=== PATIENT | male | born 1985 | race Caucasian/White ===

== ENCOUNTER 2019-09-22 11:04 | Inpatient (IN) | payer OTHER ==
[2019-09-22] MEDS ORDERED: EPINEPHrine,Rac 2.25% NEB.SOL* 0.5 ML INH ONE (11:13)
[2019-09-22] MEDS ORDERED: EPINEPHRINE 1 MG/ML 1 ML VIAL IM ONE (11:13)
[2019-09-22] MEDS ORDERED: C1 Esterase Inhib (Human) 500 UNIT INJ IV ONE (11:15)
[2019-09-22] MEDS ORDERED: Famotidine IV* 10 MG/ML 2 ML (20 mg) IV SLOW PU ONE (11:17)
--- NOTE | 2019-09-22 11:18 | ED ---
Complex/Multi-Sys Presentation - HPI Summary HPI Summary: Patient is a 33 y/o M presenting to [facility] via EMS for swelling of mouth, nose and tongue, throat swelling and pain, stridor, SOB, shallow respirations. Patient claims Hx of hereditary angioedema. Patient states that he has been intubated multiple times for similar previous issues, with the most recent episode having occurred in December 2018. He states that he feels he is getting bad currently. Sx are estimated to have onset around 0930. EMS reports 0.5 mg epi x3 , first at 0935, second 0946, third and most recent at 1047. He received Benadryl 100 mg IM and 125 mg Solu-Medrol. Pt denies any fever, chills, erythema of eyes, CP, cough, abdominal pain, N/V, dysuria, hematuria, myalgia, rash, or dizziness. Home medications and allergies are reviewed. - History Of Current Complaint Chief Complaint: EDAllergicReaction Time Seen by Provider: 09/22/19 11:08 Hx Obtained From: Patient Onset/Duration: Lasting Hours, Still Present Timing: Constant, Hours Severity Currently: Severe Location: Pain At: - throat Associated Signs And Symptoms: Positive: SOB, Edema, Other - throat swelling and pain, stridor, shallow respirations are reported; patient denies any fever, chills, erythema of eyes, CP, cough, abdominal pain, N/V, dysuria, hematuria, myalgia, rash, or dizziness. Negative: Dizziness, Cough, Chest Pain, Nausea, Vomiting, Abdominal Pain, Dysuria, Fever - Allergies/Home Medications Allergies/Adverse Reactions: Allergies Allergy/AdvReac Type Severity Reaction Status Date / Time No Known Allergies Allergy Verified 12/28/15 05:03 Home Medications: Home Medications DOXYcycline CAP(*) [DOXYcycline 100MG CAP(*)] 100 mg PO BID 09/22/19 [History Confirmed 09/22/19] Metronidazole (TOPICAL)(NF) [Metrocream (NF)] 0.75 % TOPICAL DAILY 09/22/19 [ History Confirmed 09/22/19] Sofosbuvir/Velpatasvir 400(NF) [Epclusa Tab (NF)] 1 tab PO DAILY 09/22/19 [ History Confirmed 09/22/19] Tretinoin [Avita] 0.025 % TOPICAL BEDTIME 09/22/19 [History Confirmed 09/22/19] PMH/Surg Hx/FS Hx/Imm Hx Endocrine/Hematology History: Reports: Other Endocrine/Hematological Disorders - angioedema Cardiovascular History: Reports: Other Cardiovascular Problems/Disorders - HEREDITARY ANGIOEDEMA EENT History: Reports: Other - hereditary angioedema Psychiatric History: Reports: Hx Anxiety Infectious Disease History: No Infectious Disease History: Denies: Traveled Outside the [place] in Last 30 Days - Family History Known Family History: Positive: Other - hereditary angioedema - Social History Alcohol Use: None Hx Substance Use: No Substance Use Type: Reports: None Hx Tobacco Use: Yes Smoking Status (MU): Light Every Day Tobacco Smoker Review of Systems Negative: Fever, Chills Negative: Erythema ENT: Other - positive - throat swelling and pain Negative: Chest Pain Respiratory: Other - positive - shallow respirations, stridor Positive: Shortness Of Breath. Negative: Cough Negative: Vomiting, Nausea Negative: dysuria, incontinence Positive: Edema - angioedema . Negative: Myalgia Negative: Rash Neurological: Other - negative - dizziness All Other Systems Reviewed And Are Negative: Yes Physical Exam - Summary Physical Exam Summary: Constitutional: Well-developed, Well-nourished, Alert. (-) Distressed Skin: Warm, Dry HENT: Normocephalic; Atraumatic; Patient had secretions of the mouth and edematous tongue. Eyes: Conjunctiva normal Neck: Musculoskeletal ROM normal neck. (-) JVD, (+) Stridor, (-) Tracheal deviation Cardio: Rhythm regular, rate normal, Heart sounds normal; Intact distal pulses; The pedal pulses are 2+ and symmetric. Radial pulses are 2+ and symmetric. (-) Murmur Pulmonary/Chest wall: Increased effort, respiratory distress. Abd: Soft, (-) tenderness, (-) Distension, (-) Guarding, (-) Rebound Musculoskeletal: (-) Edema Lymph: (-) Cervical adenopathy Neuro: Alert, Oriented x3 Psych: Mood and affect Normal Triage Information Reviewed: Yes Vital Signs On Initial Exam: Initial Vitals Temp Pulse Resp BP Pulse Ox 98.7 F 120 26 145/84 96 09/22/19 11:08 09/22/19 11:08 09/22/19 11:08 09/22/19 11:08 09/22/19 11:08 Vital Signs Reviewed: Yes Procedures - Sedation Patient Received Moderate/Deep Sedation with Procedure: No - Intubation Intubation Method: orotracheal Tube Size (cm): 7.0 Breath Sounds after Intubation: equal Intubation Complications: no complications Post Intubation Xray: Yes Progress/Xray Impression: STATUS POST INTUBATION, CLEAR LUNGS. Diagnostics - Vital Signs Vital Signs Temp Pulse Resp BP Pulse Ox 09/22/19 11:08 98.7 F 120 26 145/84 96 - Laboratory Result Diagrams: 09/22/19 12:44 09/22/19 12:44 Lab Statement: Any lab studies that have been ordered have been reviewed, and results considered in the medical decision making process. - Radiology CXR Radiology Interpretation Completed By: Radiologist Summary of Radiographic Findings: IMPRESSION: STATUS POST INTUBATION, CLEAR LUNGS. THIS REPORT WAS REVIEWED BY ED PHYSICIAN. - Ultrasound US IV Ultrasound Interpretation Completed By: ED Physician Summary of Ultrasound Findings: Right antecubital US, compressible blood vessel with glood blood return obtained. However, it did eventually infiltrate, HIV NURSE Dodo placed IV in right foot. Re-Evaluation - Re-Evaluation First Eval Re-Evaluation Time: 12:00 Comment: Patient is bucking the tube. Another 100 mg propofol was administered. He is also receiving rocuronium. Will look for US guided IV. Complex Multi-Symp Course/Dx Course Of Treatment: Patient is a 33 y/o M presenting to [facility] via EMS for swelling of mouth, nose and tongue, throat swelling and pain, stridor, SOB, shallow respirations. Patient claims Hx of hereditary angioedema. Patient states that he has been intubated multiple times for similar previous issues, with the most recent episode having occurred in December 2018. He states that he feels he is getting bad currently. Sx are estimated to have onset around 0930. EMS reports 0.5 mg epi x3, first at 0935, second 0946, third and most recent at 1047. He received Benadryl 100 mg IM and 125 mg Solu-Medrol. Patient was noted to have secretions at the mouth. Tongue is edematous. Stridor noted. Starting dose for Propofol was 60 mg due to the patient appearing to have a significant tolerance to the medication. Anesthesiology was called emergency for airway back up. Dr. Gordon present as well. Patient was intubated. Video laryngoscope used, tube was visualized going past the vocal cords. However, video during the procedure. Mist was visualized in the tube and bilateral breath sounds heard. No epigastric sounds. CXR. IMPRESSION: STATUS POST INTUBATION, CLEAR LUNGS.After intubation around 1200, patient started bucking the tube. Another 100 mg propofol was administered. He is also receiving rocuronium. Dr. Gutierrez, Packing Machine Tender was called and agrees to admit. - Diagnoses Provider Diagnoses: Hereditary angioedema, Airway compromise - Critical Care Time Critical Care Time: 30-74 min - 60 minutes CCT Discharge ED - Sign-Out/Discharge Documenting (check all that apply): Patient Departure - admit - Discharge Plan Condition: Guarded Disposition: ADMITTED TO [facility] - Attestation Statements Document Initiated by Scribe: Yes Documenting Scribe: JADA SOLER Provider For Whom Scribe is Documenting (Include Credential): CANDELARIO TANNER MD Scribe Attestation: JADA Mohr, scribed for CANDELARIO TANNER MD on 09/22/19 at 2300. Status of Scribe Document: Ready
[2019-09-22] MEDS ORDERED: Propofol* 100 ML IV ONE ×2 (11:20→11:59)
[2019-09-22] MEDS ORDERED: Propofol* 10 MG/ML 20 ML BTL IV PUSH ONE ×4 (11:21→16:29)
[2019-09-22] MEDS ORDERED: Propofol* 100 ML ONE ×2 (11:30→11:44)
[2019-09-22] MEDS ORDERED: Rocuronium* 10 MG/ML VIAL ONE (11:36)
[2019-09-22] MEDS ORDERED: Etomidate* 2 MG/ML 20 ML VIAL (40 MG) ONE (11:46)
[2019-09-22] MEDS ORDERED: Succinylcholine* 20 MG/ML 10 ML VIAL ONE (11:46)
[2019-09-22] MEDS ORDERED: Rocuronium* 10 MG/ML VIAL IV ONE (12:30)
[2019-09-22 12:54] LABS: ABS Monocytes 0.2 10^3/ul (0-0.8); ABS Neutrophils 10.4 10^3/ul (1.5-7.7); Eosinophil % 0.2 %; Hematocrit 41 % (42-52); Hemoglobin 13.6 g/dL (14.0-18.0); Lymphocyte % 8.9 %; Mean Corpuscular HGB Conc 33 g/dL (31-36); Mean Corpuscular Hemoglobin 27 pg (27-31); Mean Corpuscular Volume 83 fL (80-94); Mean Platelet Volume 8.6 fL (7.4-10.4); Nucleated Red Blood Cells % 0.1; Platelet Count 225 10^3/uL (150-450); Red Blood Count 4.96 10^6 /uL (4.18-5.48); Red Cell Distribution Width 14 % (10-15); White Blood Count 11.6 10^3/uL (3.5-10.8)
[2019-09-22 13:15] LABS: Albumin 4.1 g/dL (3.2-5.2); Albumin/Globulin Ratio 1.3 (1-3); BUN/Creatinine Ratio 17.1 (8-20); Calcium 8.7 mg/dL (8.6-10.3); EGFR African American 142.9 (>60); EGFR Non-African American 118.1 (>60); Globulin 3.1 g/dL (2-4); Potassium 3.3 mmol/L (3.5-5.0); Total Bilirubin 0.7 mg/dL (0.2-1.0); Total Protein 7.2 g/dL (6.4-8.9)
[2019-09-22] MEDS ORDERED: Dextrose 50% Syringe 50 ML* 25 GM/50 ML SYRINGE IV PUSH PRN (14:57)
--- NOTE | 2019-09-22 16:14 | HP ---
CRITICAL CARE ADMISSION NOTE: DATE OF ADMISSION: 09/22/19 HISTORY OF PRESENT ILLNESS: The patient is a 33-year-old male, currently incarcerated, past medical history reportedly of hereditary angioedema, he has had prior presentations here at [facility] for the same. On this occasion, he reports no particular allergen exposure, but noticed that he was having some swelling of his tongue and cheeks. [facility] was given intramuscular epinephrine. He felt he was continuing to progress and he was brought to the emergency department here at [place]. In the ED, he was given steroids as well as more epinephrine. The patient reported that he was having increased dyspnea as well as a tingling of his face and tongue. Providers noted auscultatable stridor and the patient was intubated with a 7.0 tube. PAST MEDICAL HISTORY: Significant for reported hereditary angioedema. I do not see that that has ever been worked up here, so I will be sending C1 esterase inhibitor, both function and antigen. Additionally, he has a reported history of anxiety as well as hepatitis C from IV drug abuse. CURRENT MEDICATIONS: Include: 1. Epclusa 1 tab p.o. daily. 2. Doxycycline 100 mg p.o. b.i.d., apparently for some URI complaints. 3. Avita cream 0.025% topical. 4. Flagyl topical cream for urethral eruption at 0.75%. ALLERGIES: He has no known drug allergies. FAMILY HISTORY: Similarly, I am unable to question him. SOCIAL HISTORY: He is an active IV drug abuser until incarceration. I am unable to question him about smoking or alcohol history as he is currently intubated. He is currently incarcerated. He is heavily tattooed. REVIEW OF SYSTEMS: Also unable to question. PHYSICAL EXAMINATION GENERAL: He is a very slight of build white male, now intubated on very high dose Diprivan, but still responsive through that. VITAL SIGNS: He has a temperature of 37.4 degrees, heart rate in the 90s, respiratory rate in the teens, saturating 97% on 40% on assist control on the ventilator, blood pressure currently at 130/80. HEENT: He is normocephalic, atraumatic. Pupils equal, somewhat constricted, but reactive. NECK: Supple, nontender, without JVD. LUNGS: Stridor of course is un-assessable due to the fact that he is now intubated. He has clear lung sounds. HEART: S1, S2. Regular. ABDOMEN: Soft, nontender, nondistended. Positive bowel sounds. EXTREMITIES: Lower extremities without edema. He is arousable and moving all 4 extremities. DIAGNOSTIC STUDIES/LAB DATA: Laboratory evaluations revealing white blood cell count of 11.6 with a normal differential, hemoglobin 13.6, platelet count 225. Serum sodium 141, potassium 3.3, chloride 106, bicarb 28, BUN and creatinine is 13/0.7 with a glucose of 239 and a lactate of 3.3. LFTs are grossly normal apart from a marginal elevation of ALT at 65, upper limit of normal being 52 on our assay. Chest x-ray without effusion or infiltrate. ET tube in good position. ASSESSMENT AND PLAN: This is a 33-year-old male with reported history of hereditary angioedema, by his report 13 intubations in the past, now 14 after being intubated in the emergency department here today. I have spoken to the corrections officers who felt that he did look a little bit swollen today compared to his usual appearance. I have ordered for the C1 esterase workup to see if he truly does have hereditary angioedema. He is not terribly swollen to my exam at this time, even with the intubation. His tongue is clearly in his mouth, not violating his lips. He does not seem to have any significant buccal swelling at this time nor labial swelling. We will keep him intubated on steroids overnight. We will see how he looks in the morning, evaluate him for a tube leak and if all looks good, I am hoping to be able to extubate him as soon as tomorrow morning. We are also giving him antihistamines and providing GI and DVT prophylaxis. TIME SPENT: The aggregate time providing critical care as well as personally interpreting multiple laboratory evaluations, imaging studies, reviewing the medical records, discussing the case with other physicians has thus far exceeded 35 minutes. [id number]/CPS #: [id number] ANTONIA
[2019-09-22] MEDS: methylPREDNISolone 125 MG* 2 ML VIAL IV SCH (16:21)
[2019-09-22] MEDS: D5W 1/2 NS KCl 20 Meq 1000 ML* 1,000 ML IV SCH (16:23)
[2019-09-22] MEDS: diPHENhydraMINE IV* 50 MG/ML 1 ml VIAL (BENADRYL) IV SCH (16:33)
[2019-09-22 17:05] LABS: Urine Appearance Cloudy; Urine Bilirubin Negative (Negative); Urine Blood Negative (Negative); Urine Color Yellow; Urine Glucose 1+(50 mg/dL) (Negative); Urine Ketones Negative (Negative); Urine Nitrite Negative (Negative); Urine Protein Negative (Negative); Urine Specific Gravity 1.008 (1.010-1.030); Urine Urobilinogen Negative (Negative)
[2019-09-22] MEDS: SOFOSBUVIR PO SCH (17:50)
[2019-09-22] MEDS: VELPATASVIR PO SCH (17:50)
[2019-09-22] MEDS: Chlorhexidine MOUTHWASH 0.12%* 15 ML UDC SWISH SPIT SCH ×3 (18:08→22:05)
[2019-09-22] MEDS: Insulin LISPRO* 1 UNITS UNIT SUBCUT SCH (18:19)
[2019-09-22] MEDS: Propofol* 100 ML IV SCH ×2 (18:35→22:31)
[2019-09-22] MEDS: TRETINOIN 0.025% TOPICAL SCH (20:34)
[2019-09-22] MEDS ORDERED: Ranitidine INJ(*) 25 MG/ML 2 ML VIAL IVPB SCH (21:00)
[2019-09-22] MEDS: DOXYcycline CAP(*) 100 MG PO SCH (21:08)
[2019-09-23] MEDS: methylPREDNISolone 125 MG* 2 ML VIAL IV SCH ×4 (00:11→22:26)
[2019-09-23] MEDS: Insulin LISPRO* 1 UNITS UNIT SUBCUT SCH ×4 (00:30→18:21)
[2019-09-23] MEDS: Propofol* 100 ML IV SCH ×2 (01:27→05:10)
[2019-09-23] MEDS: D5W 1/2 NS KCl 20 Meq 1000 ML* 1,000 ML IV SCH (02:00)
[2019-09-23] MEDS: diPHENhydraMINE IV* 50 MG/ML 1 ml VIAL (BENADRYL) IV SCH ×2 (02:49→16:40)
[2019-09-23] MEDS: Chlorhexidine MOUTHWASH 0.12%* 15 ML UDC SWISH SPIT SCH ×3 (02:49→11:04)
[2019-09-23] MEDS: Famotidine IV* 10 MG/ML 2 ML (20 mg) IV SLOW PU SCH ×2 (08:35→20:03)
[2019-09-23] MEDS ORDERED: C1 Esterase Inhib (Human) 500 UNIT INJ IV ONE (10:00)
[2019-09-23] MEDS: Morphine INJ* 4 MG/ML 1 ML SYRINGE (NEW SYRINGE VERSION) IV PRN ×3 (10:14→20:10)
[2019-09-23] MEDS: METRONIDAZOLE TOPICAL SCH (11:03)
[2019-09-23] MEDS: VELPATASVIR PO SCH (11:04)
[2019-09-23] MEDS: SOFOSBUVIR PO SCH (11:04)
[2019-09-23] MEDS: DOXYcycline CAP(*) 100 MG PO SCH ×2 (12:03→20:02)
--- NOTE | 2019-09-23 13:18 | PN ---
Date of Service: 09/23/19 Critical Care Services: No events overnight Vital Signs: Temp Pulse Resp BP SpO2 FiO2 37.3 C 63 18 106/61 95 30 09/23/19 12:00 09/23/19 11:00 09/23/19 11:00 09/23/19 11:00 09/23/19 11:00 09/23 08:00 Physical Exam: Gen: awake and alert s/p extubation earlier this AM HEENT: NCAT, PERRL, no stridor Lungs: no wheeze Cardiac: S1S2 regular Abdomen: soft, NT, ND, BS Extremities: no edema Neuro: grossly non-focal Fluid Balance (Past 24 Hours): I= O= Net Intake & Output 09/21/19 09/22/19 09/23/19 09/24/19 06:59 06:59 06:59 06:59 Intake Total 1907 65 Output Total 2425 505 Balance -518 -440 Weight 83.6 kg Intake: IV Fluids 1357 D5W 1/2 NS 20 meq KCL 1357 Medicated IV 480 65 CC - Propofol/Diprivan 480 65 Tube Feeding 0 Tube Feeding Flush Amount 70 Output: NG Tube Drainage Amount 200 Jaeger 2227 505 Labs: Laboratory Results - last 24 hr 09/22/19 09/22/19 09/22/19 12:44 12:44 16:00 Sodium 141 Potassium 3.3 L Chloride 106 Carbon Dioxide 28 Anion Gap 7 BUN 13 Creatinine 0.76 Est GFR ( Amer) 142.9 Est GFR (Non-Af Amer) 118.1 BUN/Creatinine Ratio 17.1 Glucose 239 H POC Glucose (mg/dL) Hemoglobin A1c 5.4 Lactic Acid 3.3 H* Calcium 8.7 Total Bilirubin 0.70 AST 31 ALT 65 H Alkaline Phosphatase 82 Troponin I 0.00 Total Protein 7.2 Albumin 4.1 Globulin 3.1 Albumin/Globulin Ratio 1.3 Urine Color Urine Appearance Urine pH Ur Specific [place] Urine Protein Urine Ketones Urine Blood Urine Nitrate Urine Bilirubin Urine Urobilinogen Ur Leukocyte Esterase Urine Glucose 09/22/19 09/22/19 09/23/19 16:01 18:07 00:15 Sodium Potassium Chloride Carbon Dioxide Anion Gap BUN Creatinine Est GFR ( Amer) Est GFR (Non-Af Amer) BUN/Creatinine Ratio Glucose POC Glucose (mg/dL) 171 H 170 H Hemoglobin A1c Lactic Acid Calcium Total Bilirubin AST ALT Alkaline Phosphatase Troponin I Total Protein Albumin Globulin Albumin/Globulin Ratio Urine Color Yellow Urine Appearance Cloudy Urine pH 5.0 Ur Specific [place] 1.008 L Urine Protein Negative Urine Ketones Negative Urine Blood Negative Urine Nitrate Negative Urine Bilirubin Negative Urine Urobilinogen Negative Ur Leukocyte Esterase Negative Urine Glucose 1+(50 mg/dl) A 09/23/19 06:05 Sodium Potassium Chloride Carbon Dioxide Anion Gap BUN Creatinine Est GFR ( Amer) Est GFR (Non-Af Amer) BUN/Creatinine Ratio Glucose POC Glucose (mg/dL) 143 H Hemoglobin A1c Lactic Acid Calcium Total Bilirubin AST ALT Alkaline Phosphatase Troponin I Total Protein Albumin Globulin Albumin/Globulin Ratio Urine Color Urine Appearance Urine pH Ur Specific [place] Urine Protein Urine Ketones Urine Blood Urine Nitrate Urine Bilirubin Urine Urobilinogen Ur Leukocyte Esterase Urine Glucose Nutrition: Full liquids Impression: Reported hereditary angioedema with good leak tets on ETT this AM and extubated uneventfully. Plan: Hereditary Angioedema - I was skeptical of this diagnosis as his his clinical edema at the time I saw him was not particularly impressive for the diagnosis. That said, he was treated with high dose steroids and antihistamines for 24H and on extubation this AM he relates very specific information about his diagnosis, that it is hereditary angioedema type III, that he does not improve with 'corticosteroids' or 'antihistamines' and "I need C-1 esterase inhibitor or I will go through this again" all in writing as he relates that it is difficult to phonate and he feels it getting worse since removal of the tube. I continue to be skeptical that he requires the drug but the diagnosis of this disease is complex, even ethereal at times and the consequences of me not treating him could be fatal. In that light we have ordered c-1 inhibitor and will continue to observe him for progress. Critical Care Time: 35 minutes
[2019-09-23] MEDS: TRETINOIN 0.025% TOPICAL SCH (20:03)
[2019-09-24] MEDS: Morphine INJ* 4 MG/ML 1 ML SYRINGE (NEW SYRINGE VERSION) IV PRN ×3 (00:45→09:18)
[2019-09-24] MEDS: Insulin LISPRO* 1 UNITS UNIT SUBCUT SCH ×3 (00:45→12:57)
[2019-09-24] MEDS: diPHENhydraMINE IV* 50 MG/ML 1 ml VIAL (BENADRYL) IV SCH (03:27)
[2019-09-24] MEDS: VELPATASVIR PO SCH (08:43)
[2019-09-24] MEDS: SOFOSBUVIR PO SCH (08:43)
[2019-09-24] MEDS: DOXYcycline CAP(*) 100 MG PO SCH (08:43)
[2019-09-24] MEDS: Famotidine IV* 10 MG/ML 2 ML (20 mg) IV SLOW PU SCH (08:44)
[2019-09-24] MEDS: methylPREDNISolone 125 MG* 2 ML VIAL IV SCH (08:44)
[2019-09-24] MEDS: METRONIDAZOLE TOPICAL SCH (08:45)
--- NOTE | 2019-09-24 11:07 | DS ---
33 y/o male with reported history hereditary angioedema III. Intubated in ED for mild angioedema to exam, glossitis and subjective complaints from patient. Treated with steroids and antihistamines and edema improved. Leak test prior to extubation around a 7.0 ETT and a strong leak detected. Pt extubated and objective parameters remained good with respect to exam and respiratory status. That said, patient again complaining of subjective worsening in symptoms and feeling of impending intubation. He did then receive C-1 esterase inhibitor. He reported subjective improvement. He looks about the same to me with very mild facial edema. No buccal edema, no stridor, no dyspnea, no vocal change, no glossal edema. Ambulate in ICU and DC back to intermediate. I do not believe this patient has hereditary angioedema III. The diagnosis is entirely clinical by definition. Statistically he is an aberration if this is correct. He is supposed to be female and he is supposed to have first degree relatives with the disease which he tells me he does not. I have discussed this with the patient who is open to the idea that he is allergic to something rather than he has HAE. He volunteered that Raamen soup seems to tip him over so I wondered about MSG and asked him about Doritos and [place]an food which are both recognized triggers for him. I think the allergen here may be MSG and we have changed his allergy profile at [facility] to reflect that and the patient has been asked to avoid MSG. He voiced understanding and appreciation and was very open to the conversation. He will be discharged on a prednisone taper beginning with 40mg tomorrow and decrease by 10mg daily over four days. Discharge condition is stable Discharge disposition is to his domicile which is halfway. Discharge Diagnosis is Angioedema likely secondary to food allergen possibly monosodium glutamate. Doubt Hereditary Angioedema III. Recommend f/u allergy testing attention MSG. Recommend record ALLERGIC to MSG until this can be disproven. Continue his other medications as they were prior to admission.
[2019-09-24 12:19] VITALS: BP 118/69
== END 2019-09-24 14:00 | DRG 811 ==
LOC: ED 11:04 → EEVIPCON 12:48 → ICU 12:48
PROVIDERS: ADMIT Internal Medicine Critical Care Medicine; ATTEND Internal Medicine Critical Care Medicine
PROC: 5A1935Z Respiratory Ventilation, Less than 24 Consecutive Hours (ICD-10-PCS; principal; 2019-09-22)
PROC: 0BH17EZ Insertion of Endotracheal Airway into Trachea, Via Natural or Artificial Opening (ICD-10-PCS; 2019-09-22)
DX: T78.3XXA Angioneurotic edema, initial encounter (principal); D84.1 Defects in the complement system; F41.9 Anxiety disorder, unspecified; F17.210 Nicotine dependence, cigarettes, uncomplicated; Z91.018 Allergy to other foods; Z28.21 Immunization not carried out because of patient refusal; Z79.899 Other long term (current) drug therapy
CPT/HCPCS: 36415; 71045; 80053; 81003; 82947; 83036; 83520; 83605; 83883; 84484; 85025; 87040; 87641; 94003; 96374; 96375; 99285; A9270-GY; J0330; J1200; J2270; J2704; J2930

== ENCOUNTER 2019-09-27 01:02 | Inpatient (IN) | payer OTHER ==
[2019-09-27] MEDS ORDERED: EPINEPHRINE 1 MG/ML 1 ML VIAL IM ONE (01:06)
[2019-09-27] MEDS ORDERED: NS 0.9% 1000 ML** 1,000 ML IV ONE (01:06)
[2019-09-27] MEDS ORDERED: Lorazepam PYXIS KEY ONE (01:09)
[2019-09-27] MEDS ORDERED: LORazepam INJ* 2 MG/ML 1 ML VIAL ONE (01:10)
[2019-09-27] MEDS ORDERED: EPINEPHRINE 1 MG/ML 1 ML VIAL ONE (01:16)
[2019-09-27] MEDS ORDERED: Etomidate* 2 MG/ML 10 ML VIAL IV ONE (01:16)
[2019-09-27] MEDS ORDERED: EPINEPHrine SYR 0.1MG/ML* SYRINGE ONE (01:16)
[2019-09-27] MEDS ORDERED: LORazepam INJ* 2 MG/ML 1 ML VIAL IM ONE (01:16)
[2019-09-27] MEDS ORDERED: Succinylcholine* 20 MG/ML 10 ML VIAL IV ONE (01:17)
--- NOTE | 2019-09-27 01:24 | ED ---
Respiratory - HPI Summary HPI Summary: Patient is a 33 y/o M presenting to [facility] via EMS for SOB and angioedema. It is reported that the patient has Hx of hereditary angioedema and has had 15-16 previous intubations as a result of this. He was recently evaluated at [facility] for similar presentation, patient was immediately intubated upon his arrival to ED and admitted to ICU. He was discharged from ICU a few days ago. Longterm facility where patient resides had administered epi 0.5 mg x2 and benadryl 25 mg. EMS administered 0.5 mg epi, benadryl 25 mg, 10 mg decadron, and a duoneb. Patient arrived at 0101, provider at bedside immediately to evaluate. Home medications and allergies are reviewed. - History of Current Complaint Chief Complaint: EDAllergicReaction Stated Complaint: SHORT OF BREATH Time Seen by Provider: 09/27/19 01:06 Hx Obtained From: Patient Onset/Duration: Still Present Initial Severity: Severe Current Severity: Severe Pain Intensity: 0 Character: Dyspnea at Rest Associated Signs and Symptoms: Edema - angioedema - Allergy/Home Medications Allergies/Adverse Reactions: Allergies Allergy/AdvReac Type Severity Reaction Status Date / Time monosodium glutamate Allergy Difficulty Verified 09/24/19 10:33 Breathing/Wheezing PMH/Surg Hx/FS Hx/Imm Hx Endocrine/Hematology History: Reports: Other Endocrine/Hematological Disorders - angioedema Cardiovascular History: Reports: Other Cardiovascular Problems/Disorders - HEREDITARY ANGIOEDEMA Sensory History: Reports: Hx Contacts or Glasses Denies: Hx Hearing Aid Opthamlomology History: Reports: Hx Contacts or Glasses Psychiatric History: Reports: Hx Anxiety Infectious Disease History: No Infectious Disease History: Reports: Hx Hepatitis Denies: Traveled Outside the [place] in Last 30 Days - Family History Known Family History: Positive: Other - hereditary angioedema - Social History Alcohol Use: None Hx Substance Use: No Substance Use Type: Reports: None Hx Tobacco Use: Yes Smoking Status (MU): Light Every Day Tobacco Smoker Review of Systems ENT: Other - positive - angioedema Positive: Shortness Of Breath All Other Systems Reviewed And Are Negative: Yes Physical Exam - Summary Physical Exam Summary: General: Well-developed, Well-nourished male. Respiratory distress noted. HEENT: Normocephalic, Atraumatic. Eyes: Conjuctiva normal, PERRL. Oropharynx: Patient has a severely enlarged tongue and oropharynx. Mucous membranes moist, (-) exudates. Neck: Soft, FROM, (-) lymphadenopathy, (-) thyromegaly, (-) JVD. Cardiovascular: Normal sinus rhythm, (-) murmur. Lungs: Respiratory distress, bilateral rhonchus breath sounds. Good air exchange. Abdomen: Soft, non-tender, non-distended, (-) organomegaly, normal bowel sounds. Back: (-) CVA tenderness Extremities: No edema. Skin: Warm, dry, (-) rash. Neuro: Alert and oriented x3, moves all extremities equally. No ataxia. No gait disturbance. No sensory deficit. Normal strength, normal sensation. Psychiatric: Moderately Anxious-Appearing Triage Information Reviewed: Yes Vital Signs On Initial Exam: Initial Vitals Temp Pulse Resp BP Pulse Ox 97.9 F 83 24 142/96 100 09/27/19 01:04 09/27/19 01:04 09/27/19 01:04 09/27/19 01:04 09/27/19 01:04 Vital Signs Reviewed: Yes Procedures - Procedure Summary Procedure Summary: Patient received orotracheal intubation. 0121 - 30 mg etomidate administered. 0122 - 100 mg succinylcholine administered. 0124 - 8.0 tube was used, patient was 21 at the lips. Patient was successfully intubated with one attempt, no complications during the procedure noted. - Sedation Patient Received Moderate/Deep Sedation with Procedure: No - Intubation Time of Intubation: :24 Intubation Method: orotracheal Tube Size (cm): 8.0 Medications: Succinylcholine - and etomidate Breath Sounds after Intubation: equal Intubation Complications: no complications Post Intubation Xray: Yes Progress/Xray Impression: Tube in good position, pending official report. Diagnostics - Vital Signs Vital Signs Temp Pulse Resp BP Pulse Ox 09/27/19 01:04 97.9 F 83 24 142/96 100 - Laboratory Result Diagrams: 09/27/19 05:33 09/27/19 05:33 Lab Statement: Any lab studies that have been ordered have been reviewed, and results considered in the medical decision making process. - Radiology CXR Radiology Interpretation Completed By: ED Physician Summary of Radiographic Findings: Tube in good position, no obvious infiltrate and no pleural effusion, pending official report. Disposition - Course Course Of Treatment: 33-year-old male presents from [facility] with angioedema. Patient has significant tongue swelling upon arrival. Difficulty talking. Difficulty swallowing. Very short of breath. Wheezing. At his facility he was given 25 mg of Benadryl and .3 epinephrine IM. En route he was given 25 mg of Benadryl, repeat epinephrine, Decadron. Upon arrival patient was given 0.5 mg epinephrine. He continued to have significant shortness of breath and difficulty swallowing. Severe tongue swelling. Patient was given Ativan. Patient was given RSI with etomidate, succinylcholine. Intubated with 8.0 ETtube. Patient was given propofol for sedation without relief. Was given 2 doses of Versed. Then an Ativan drip was ordered. Patient referred to hospitalist for admission. During ED course, patient received epinephrine 0.3 mg IM, Ativan 2 mg IM, Zofran 4 mg IV, fluids. For intubation, patient was given 30 mg etomidate and 100 mg succinylcholine. However, patient had continued agitation and was given Propofol and Versed as well. - Diagnoses Provider Diagnoses: Angioedema - Physician Notifications Discussed Care Of Patient With: John Ghotra Time Discussed With Above Provider: 02:30 Instructed by Provider To: Other - Patient's case was discussed with Dr. Ghotra, Dr. Ghotra accepts for admission. - Critical Care Time Critical Care Time: 30-74 min - 56 minutes Discharge ED - Sign-Out/Discharge Documenting (check all that apply): Patient Departure - admit - Discharge Plan Condition: Fair Disposition: ADMITTED TO [facility] - Billing Disposition and Condition Condition: FAIR Disposition: Admitted to [facility] - Attestation Statements Document Initiated by Julia: Yes Documenting Scribe: JADA SOLER Provider For Whom Julia is Documenting (Include Credential): MARIA M RUTH MD Scribe Attestation: JADA Mohr, scribed for MARIA M RUTH MD on 09/27/19 at 0631. Scribe Documentation Reviewed: Yes Provider Attestation: The documentation as recorded by the JADA veloz accurately reflects the service I personally performed and the decisions made by me, MARIA M RUTH MD Status of Scribe Document: Viewed
[2019-09-27] MEDS ORDERED: Midazolam* 1 MG/ML 5 ML VIAL (5 MG) ONE (01:33)
[2019-09-27] MEDS ORDERED: Ondansetron INJ* 2 MG/ML VIAL ONE (01:34)
[2019-09-27] MEDS ORDERED: Propofol* 10 MG/ML 20 ML BTL IV PUSH ONE (01:36)
[2019-09-27] MEDS ORDERED: Ondansetron INJ* 2 MG/ML VIAL IV ONE (01:37)
[2019-09-27] MEDS ORDERED: Midazolam* 1 MG/ML 5 ML VIAL (5 MG) IV SLOW PU ONE (01:37)
[2019-09-27] MEDS ORDERED: Propofol* 100 ML ONE ×3 (01:41→08:36)
[2019-09-27] MEDS: Propofol* 100 ML IV ONE ×3 (01:44→08:38)
[2019-09-27] MEDS ORDERED: Midazolam* 1 MG/ML 10 ML VIAL (10 MG) IV SLOW PU ONE (01:48)
[2019-09-27] MEDS ORDERED: LORazepam PREMIX BAG 1MG/ML* 100 MG/100 ML BAG IVPB SCH (02:00)
[2019-09-27 03:00] LABS: ABS Eosinophils 0.1 10^3/ul (0-0.6); ABS Lymphocytes 2.3 10^3/ul (1.0-4.8); ABS Monocytes 1.2 10^3/ul (0-0.8); ABS Neutrophils 15.7 10^3/ul (1.5-7.7); Eosinophil % 0.3 %; Hematocrit 41 % (42-52); Hemoglobin 13.6 g/dL (14.0-18.0); Lymphocyte % 11.8 %; Mean Corpuscular HGB Conc 33 g/dL (31-36); Mean Corpuscular Hemoglobin 27 pg (27-31); Mean Corpuscular Volume 82 fL (80-94); Mean Platelet Volume 8.4 fL (7.4-10.4); Nucleated Red Blood Cells % 0.1; Platelet Count 259 10^3/uL (150-450); Red Blood Count 5.01 10^6 /uL (4.18-5.48); Red Cell Distribution Width 14 % (10-15); White Blood Count 19.2 10^3/uL (3.5-10.8)
[2019-09-27 03:04] LABS: Urine Appearance Clear; Urine Bilirubin Negative (Negative); Urine Blood 3+ (Negative); Urine Color Straw; Urine Glucose Negative (Negative); Urine Ketones Negative (Negative); Urine Nitrite Negative (Negative); Urine Protein Negative (Negative); Urine Specific Gravity 1.009 (1.010-1.030); Urine Urobilinogen Negative (Negative)
[2019-09-27 03:15] LABS: INR 1.08 (0.82-1.09)
[2019-09-27 03:20] LABS: Albumin 3.9 g/dL (3.2-5.2); Albumin/Globulin Ratio 1.4 (1-3); BUN/Creatinine Ratio 26.3 (8-20); Calcium 8.7 mg/dL (8.6-10.3); EGFR African American 142.9 (>60); EGFR Non-African American 118.1 (>60); Globulin 2.8 g/dL (2-4); Potassium 3.4 mmol/L (3.5-5.0); Total Bilirubin 0.9 mg/dL (0.2-1.0); Total Protein 6.7 g/dL (6.4-8.9)
[2019-09-27 03:22] LABS: Troponin I 0.01 ng/mL (<0.03)
[2019-09-27 03:30] LABS: Urine Bacteria Absent (Absent); Urine Red Blood Cell 3+(>10/hpf) (Absent); Urine White Blood Cell Trace(0-5/hpf) (Absent)
[2019-09-27] MEDS ORDERED: NS 0.9% 1000 ML** 1,000 ML IV SCH (03:45)
[2019-09-27] MEDS ORDERED: KCL 10 MEQ/50 ML IVPREMIX* 10 MEQ/50 ML BAG IV ONE (05:32)
[2019-09-27 05:44] LABS: ABS Lymphocytes 1.1 10^3/ul (1.0-4.8); ABS Monocytes 0.4 10^3/ul (0-0.8); ABS Neutrophils 13.3 10^3/ul (1.5-7.7); Eosinophil % 0.1 %; Hematocrit 41 % (42-52); Hemoglobin 13.5 g/dL (14.0-18.0); Lymphocyte % 7.2 %; Mean Corpuscular HGB Conc 33 g/dL (31-36); Mean Corpuscular Hemoglobin 27 pg (27-31); Mean Corpuscular Volume 83 fL (80-94); Mean Platelet Volume 8.2 fL (7.4-10.4); Nucleated Red Blood Cells % 0.1; Platelet Count 211 10^3/uL (150-450); Red Blood Count 4.95 10^6 /uL (4.18-5.48); Red Cell Distribution Width 14 % (10-15); White Blood Count 14.8 10^3/uL (3.5-10.8)
[2019-09-27 05:57] LABS: BUN/Creatinine Ratio 26.1 (8-20); Calcium 8.3 mg/dL (8.6-10.3); EGFR African American 159.8 (>60); EGFR Non-African American 132.1 (>60); Potassium 4.4 mmol/L (3.5-5.0)
[2019-09-27] MEDS ORDERED: methylPREDNISolone SOD 40 MG* 1 ML VIAL IV SCH (06:00)
--- NOTE | 2019-09-27 07:19 | HP ---
CC: LEYLA Stone * ADMISSION HISTORY AND PHYSICAL: DATE OF ADMISSION: 09/27/19 CHIEF COMPLAINT: Allergic reaction and shortness of breath. HISTORY OF PRESENT ILLNESS: This is a 33-year-old male with past medical history of angioedema, which was questioned on the last admission by copy chaser with recurrent admissions for hereditary angioedema and requiring intubations in the past. Last admission was on 09/22/19. During this admission , the patient did receive C1 esterase inhibitor along with steroids, but the copy chaser did not agree with the diagnosis of hereditary angioedema and sent out labs including the C1 esterase inhibitor level and function. These levels are still pending as they were sent to [place] to [facility] to get tested. The patient again came back today with complaint of increasing shortness of breath. The ER physician thought the patient was in impending respiratory failure and subsequently intubated the patient. After a trial of epi and steroids, they did not seem to help the patient's angioedema. PAST MEDICAL HISTORY: As mentioned, reported history of angioedema, but both the function and antigen levels of C1 esterase are still pending from [facility], history of anxiety as well as hep C from IV drug abuse, and with multiple previous intubations for angioedema. MEDICATIONS: Include: 1. Avita. 2. Prednisone dose pack. 3. Epclusa. 4. Metronidazole. 5. Doxycycline. ALLERGIES: Has documented allergy to MONOSODIUM GLUTAMATE, which was assumed to cause the patient's allergic reaction on the last admission. FAMILY HISTORY: Unable to question him as he is intubated. SOCIAL HISTORY: He has a history of IV drug abuse until incarceration. The patient is otherwise heavily tattooed and is currently incarcerated, but otherwise no further social history could be obtained at this point. REVIEW OF SYSTEMS: Again, unable to obtain due to the patient's intubation status. PHYSICAL EXAMINATION GENERAL: The patient is sedated on the vent. VITAL SIGNS: In the ER, BP was noted to be 106/63, heart rate 69, respiration rate 17, saturating 100% on vent, temperature 97.9. HEAD AND NECK: Atraumatic, normocephalic. Bilateral pupils reactive. Oral mucosa was moist. I could not appreciate much edema of his tongue, but most of my oral examination was obscured due to ET tube placement. Neck is supple. No jugular venous distention. LUNGS: Clear to auscultation bilaterally. No wheezing, rhonchi or rales. HEART: S1, S2. Regular rate and rhythm. ABDOMEN: Soft, nontender, nondistended. EXTREMITIES: No cyanosis, clubbing or edema. DIAGNOSTIC STUDIES/LABORATORY DATA: Labs: CBC shows elevated white count of 19.2, hemoglobin 13.6, hematocrit 41, platelet count was 241. Coagulation profile, INR of 1.08. Comprehensive metabolic panel was unremarkable except for a mild hypokalemia with potassium of 3.4. Random glucose minimally elevated at 165. Lactic acid is 1.6. Troponin is 0.1. LFTs within normal limits. Urinalysis was positive for 3+ blood, negative for any leukocyte esterase or nitrites. Portable chest x-ray showed ET tube at 5 cm above the tom, but otherwise good air exchange. Overall, both lung thomas were inflated. Normal cardiac silhouette. IMPRESSION: This is a 33-year-old male with questionable history of hereditary angioedema versus allergic reaction. Previous C1 esterase inhibitor level is still pending. ASSESSMENT AND PLAN: 1. Angioedema, unclear if it is hereditary angioedema versus allergic reaction. For now, we will continue with the steroids, vent management according to copy chaser in the morning and we will get an ABG to follow up his overall saturation and titrate ventilation setting. 2. Leukocytosis is likely due to the steroid that was administered from the ER as the patient's lab were drawn until much later due to difficult IV access and due to difficult lab draw. 3. Hypokalemia. We will replace potassium. 4. DVT prophylaxis with sequential compression device. [id number]/[facility] #: [id number] ANTONIA
[2019-09-27] MEDS ORDERED: Pantoprazole IV* 40 MG IV SCH (08:00)
[2019-09-27] MEDS ORDERED: Chlorhexidine MOUTHWASH 0.12%* 15 ML UDC TOPICAL SCH (10:00)
--- NOTE | 2019-09-27 10:04 | PN ---
Progress Note - Progress Note Date of Service: 09/27/19 Note: Progress Note -- Critical Care 24 hour events/significant events: Comfortable on vent overnight. Tolerating SBT. +Cuff leak. ROS: negative except for pertinent positives mentioned above; ROS unable to be obtained secondary to intubated/sedated Tele: NSR Vitals: Initial Vitals Temp Pulse Resp BP Pulse Ox 97.9 F 83 24 142/96 100 09/27/19 01:04 09/27/19 01:04 09/27/19 01:04 09/27/19 01:04 09/27/19 01:04 O2/Vent: Spontaneous Infusions: Propofol Medications: Chlorhexidine Gluconate (Peridex Mouth Wash 0.12%*) 15 ml TOPICAL Q4HR FAVIOLA Propofol (Diprivan*) 100 mls @ 2.722 mls/hr IV .PER PROTOCOL ONE; Protocol Stop: 09/28/19 14:01 Last Admin: 09/27/19 08:38 Dose: 27.8 mls/hr Lorazepam (Ativan Premix Bag 1mg/Ml*) 100 mg in 100 mls @ 2 mls/hr IVPB .( Initial Rate) FAVIOLA; Protocol Sodium Chloride (Ns 0.9% 1000 Ml) 1,000 mls @ 100 mls/hr IV PER RATE [facility] Last Admin: 09/27/19 05:42 Dose: 100 mls/hr Methylprednisolone Sodium Succinate (Solu-Medrol 40 Mg) 40 mg IV Q8H FAVIOLA Last Admin: 09/27/19 05:46 Dose: 40 mg Pantoprazole Sodium (Protonix Iv*) 40 mg IV Q24H [facility] Last Admin: 09/27/19 08:39 Dose: 40 mg Physical Exam: Constitutional: Intubated and sedated Head: normocephalic, atraumatic Eyes: no pallor, no icterus ENT: moist mucous membranes Neck: soft, supple, no jvd, no stridor CVS: normal rate, regular, no murmur Chest/Resp: bilateral air entry, no rhales, no wheeze, no rhonchi, no acc muscle use Abdomen/GI: soft, nontender, nondistended, BS+ Ext/Msk: warm, pulses+, no edema Skin: intact, warm Neuro: awake, alert, orientedx3, moving all extremities, no gross focal deficit Labs: Laboratory Results - last 24 hr 09/27/19 09/27/19 09/27/19 02:46 02:46 02:46 WBC 19.2 H RBC 5.01 Hgb 13.6 L Hct 41 L MCV 82 MCH 27 MCHC 33 RDW 14 Plt Count 259 MPV 8.4 Neut % (Auto) 81.5 Lymph % (Auto) 11.8 Martin % (Auto) 6.3 Eos % (Auto) 0.3 Baso % (Auto) 0.1 Absolute Neuts (auto) 15.7 H Absolute Lymphs (auto) 2.3 Absolute Monos (auto) 1.2 H Absolute Eos (auto) 0.1 Absolute Basos (auto) 0.0 Absolute Nucleated RBC 0.0 Nucleated RBC % 0.1 INR (Anticoag Therapy) Patient Temperature ABG pH ABG pH (Temp Correct) ABG pCO2 ABG pCO2 (Temp Corrct ABG pO2 ABG pO2 (Temp Correct ABG HCO3 ABG O2 Saturation ABG Base Excess Respiration Rate O2 Delivery Device Ventilator Type Vent Mode FiO2 Inspiratory Time PEEP Pressure Support Pressure Control EPAP IPAP BiPAP Sodium 139 Potassium 3.4 L Chloride 103 Carbon Dioxide 28 Anion Gap 8 BUN 20 Creatinine 0.76 Est GFR ( Amer) 142.9 Est GFR (Non-Af Amer) 118.1 BUN/Creatinine Ratio 26.3 H Glucose 165 H Lactic Acid 1.4 Calcium 8.7 Total Bilirubin 0.90 AST 20 ALT 24 Alkaline Phosphatase 66 Troponin I 0.01 Total Protein 6.7 Albumin 3.9 Globulin 2.8 Albumin/Globulin Ratio 1.4 Urine Color Urine Appearance Urine pH Ur Specific [place] Urine Protein Urine Ketones Urine Blood Urine Nitrate Urine Bilirubin Urine Urobilinogen Ur Leukocyte Esterase Urine WBC (Auto) Urine RBC (Auto) Urine Bacteria Urine Glucose 09/27/19 09/27/19 09/27/19 02:46 02:46 05:33 WBC RBC Hgb Hct MCV MCH MCHC RDW Plt Count MPV Neut % (Auto) Lymph % (Auto) Martin % (Auto) Eos % (Auto) Baso % (Auto) Absolute Neuts (auto) Absolute Lymphs (auto) Absolute Monos (auto) Absolute Eos (auto) Absolute Basos (auto) Absolute Nucleated RBC Nucleated RBC % INR (Anticoag Therapy) 1.08 Patient Temperature ABG pH ABG pH (Temp Correct) ABG pCO2 ABG pCO2 (Temp Corrct ABG pO2 ABG pO2 (Temp Correct ABG HCO3 ABG O2 Saturation ABG Base Excess Respiration Rate O2 Delivery Device Ventilator Type Vent Mode FiO2 Inspiratory Time PEEP Pressure Support Pressure Control EPAP IPAP BiPAP Sodium 140 Potassium 4.4 Chloride 108 Carbon Dioxide 25 Anion Gap 7 BUN 18 Creatinine 0.69 Est GFR ( Amer) 159.8 Est GFR (Non-Af Amer) 132.1 BUN/Creatinine Ratio 26.1 H Glucose 132 H Lactic Acid Calcium 8.3 L Total Bilirubin AST ALT Alkaline Phosphatase Troponin I Total Protein Albumin Globulin Albumin/Globulin Ratio Urine Color Straw Urine Appearance Clear Urine pH 7.0 Ur Specific [place] 1.009 L Urine Protein Negative Urine Ketones Negative Urine Blood 3+ A Urine Nitrate Negative Urine Bilirubin Negative Urine Urobilinogen Negative Ur Leukocyte Esterase Negative Urine WBC (Auto) Trace(0-5/hpf) Urine RBC (Auto) 3+(>10/hpf) A Urine Bacteria Absent Urine Glucose Negative 09/27/19 09/27/19 05:33 06:00 WBC 14.8 H RBC 4.95 Hgb 13.5 L Hct 41 L MCV 83 MCH 27 MCHC 33 RDW 14 Plt Count 211 MPV 8.2 Neut % (Auto) 90.1 Lymph % (Auto) 7.2 Martin % (Auto) 2.5 Eos % (Auto) 0.1 Baso % (Auto) 0.1 Absolute Neuts (auto) 13.3 H Absolute Lymphs (auto) 1.1 Absolute Monos (auto) 0.4 Absolute Eos (auto) 0.0 Absolute Basos (auto) 0.0 Absolute Nucleated RBC 0.0 Nucleated RBC % 0.1 INR (Anticoag Therapy) Patient Temperature Not Reportable ABG pH 7.39 ABG pH (Temp Correct) Not Reportable ABG pCO2 47 H ABG pCO2 (Temp Corrct Not Reportable ABG pO2 166 H ABG pO2 (Temp Correct Not Reportable ABG HCO3 27.1 ABG O2 Saturation 100.0 H ABG Base Excess 2.8 H Respiration Rate 18 O2 Delivery Device vent Ventilator Type 450 Vent Mode cmv FiO2 40 Inspiratory Time Not Reportable PEEP 5 Pressure Support Not Reportable Pressure Control Not Reportable EPAP Not Reportable IPAP Not Reportable BiPAP Not Reportable Sodium Potassium Chloride Carbon Dioxide Anion Gap BUN Creatinine Est GFR ( Amer) Est GFR (Non-Af Amer) BUN/Creatinine Ratio Glucose Lactic Acid Calcium Total Bilirubin AST ALT Alkaline Phosphatase Troponin I Total Protein Albumin Globulin Albumin/Globulin Ratio Urine Color Urine Appearance Urine pH Ur Specific [place] Urine Protein Urine Ketones Urine Blood Urine Nitrate Urine Bilirubin Urine Urobilinogen Ur Leukocyte Esterase Urine WBC (Auto) Urine RBC (Auto) Urine Bacteria Urine Glucose Imaging: CXR 09/26/19 IMPRESSION: THE ENDOTRACHEAL TUBE TIP TERMINATES 4 CM BELOW THE MYCHAL.. Assessment: Suspected Angioedema Plan: Neuro - drug abuse - monitor for withdrawal CVS- BP ok Resp- Intubated for airway protection - tolerating sbt - +cuff leak - extubate today ID - elevated wbc - afebrile - hold abx for now GI- -Nutrition: start diet -GI prophylaxis Renal- -strict I/O, replete to keep K>4, Mg>2 -monique as indicated Heme- monitor cbc Endo-Maintain BG<200, insulin protocol as needed Musculsk- pressure ulcer prophylaxis. Bedrest. Rheum - Angioedema - c/w prednisone - suspect allergy to food/medication - doubt heridary angioedema Wounds- none Nutrition- regular diet DVT prophylaxis: hsq GI prophylaxis: eating Central Line: none Arterial Line: none Monique Cathetor: DC Disposition: transfer to floor vs discharge Patient clinical status: improved Code Status: full
[2019-09-27] MEDS ORDERED: Acetaminophen TAB* 325 MG PO PRN (10:40)
[2019-09-27] MEDS ORDERED: Ketorolac INJ* 30 MG/ML 1 ML VIAL IV PUSH ONE (11:21)
[2019-09-27] MEDS ORDERED: PTO:Sofosbuvir/Velpatasvir 400/100(NF) TAB (Epclusa) PO SCH (12:00)
--- NOTE | 2019-09-27 12:39 | PN ---
Progress Note - Progress Note Date of Service: 09/27/19 Note: PCCM Addendum Patient was extubated to room air this AM. He immediately began to request pain medication. I asked if I could speak to his outpatient chiropractic teacher who he stated was Dr. Whitney from [facility]. I called the office and was told that the patient had missed his outpatient appointment and had only been seen by rheumatology as an inpatient. Inpatient notes were faxed to the ICU. The notes stated that the patient had a negative work up for hereditary angioedema that included a normal c1 esterase, c1 inhibitor, c1q, c3, and c4 making angioedema type 1 and 2 unlikely and Type 3 angioedema is still a possiblity. The patient may have angioedema but it is worth considering that the patient may not truly carry the diagnosis of angioedema and that he may have a factitious disorder in effort to obtain pain medication. We will monitor the patient closely for recurrent symptoms, however, at this time he only complains of pain from swelling which has either resolved or was not present to begin with. I will consult psychiatry, rheumatology, and pain management. CT
--- NOTE | 2019-09-27 14:43 | CONS ---
PSYCHIATRIC CONSULTATION REPORT: DATE OF CONSULT: 09/27/19 ATTENDING PHYSICIAN: Dr. Israel Belcher. CONSULTING PHYSICIAN: Dr. Vinicius Burns. REASON FOR CONSULT: Question as to whether the patient is exaggerating symptoms to receive narcotic medications, rule out malingering. SUBJECTIVE HISTORY: Mr. Franco is a 33-year-old white male with a history of significant polysubstance dependence who is currently incarcerated at the 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 The patient was intubated in the emergency room where physical examination described his tongue as grossly enlarged. He was then transferred back to the ICU where he was extubated this morning. The patient is dissatisfied with his care, insisting that his angioedema condition is not being appropriately treated. The primary team had received information from a nurse manager of case management from the [facility] which indicated their suspicion that he was in fact feigning symptoms in order to receive some combination of pain medications and respite from incarceration. For collateral information, I spoke with a nurse named, Neris Foreman at the [facility]. She reports that she is a utilization utilization review nurse for the correction health system and has followed Mr. Franco's case over several years because he has been in and out of various State penitentiaries. She notes that he has a legitimate history of familial angioedema and will often present with episodes of stridorous breathing, air hunger and pain. Apparently, his respiratory distress is not so severe as to prevent him from yelling at [facility] staff during these episodes. When I meet with the patient, he is awake and alert, accompanied by 2 corrections officers. He is handcuffed in bed and makes good eye contact. The patient appears to be breathing normally and is able to give history in an unlabored fashion. He states that his condition specifically warrants use of IV Solu-Medrol as well as an alpha-antitrypsin inhibitor. He is also seeking what he deems to be appropriate analgesia for pain reported throughout the chest, throat and abdomen, although he does not request any specific pain medication or Ativan from this clinician. Instead, he is insisting on a second opinion, saying that he disagrees with management by the current primary team. He denies active psychiatric problems such as depressed mood, anxiety, suicidal or homicidal ideations. When asked about the possibility that he is exaggerating symptoms in order to get out of correction, he indicates that he only has 22 days left in group home and therefore why would he seek hospitalization for alternative motives? PAST PSYCHIATRIC HISTORY: According to the group home, the patient has been treated with the antipsychotic Zyprexa in the past for an unspecified condition. When asked about this, the patient indicates that he only took this in order to "sleep my sentence away". He denies any history of suicidality or homicidality. He denies any history of abuse or neglect. Denies any history of psychiatric hospitalization. SUBSTANCE ABUSE HISTORY: The patient indicates that he has been sober from opioids since April 2018 and was being successfully treated in a buprenorphine clinic in his [place] in [place], [place]. Alf records indicate that he has a significant history of polysubstance abuse with heroin, crack cocaine, cannabis, alcohol, methamphetamine and MDMA. He has been in numerous court-ordered rehabilitation programs in the past with limited success. PAST MEDICAL HISTORY: Significant for familial angioedema, hepatitis C. CURRENT MEDICATIONS: Include: 1. Prednisone. 2. Epclusa. 3. Metronidazole. 4. Doxycycline. ALLERGIES: He is allergic to MONOSODIUM GLUTAMATE. FAMILY HISTORY: The patient states that his mother had familial angioedema as well. SOCIAL HISTORY: The patient is from the [place], [place] area where he has most recently been residing with his and male child. He has been incarcerated numerous times. He is currently on a 90-day stay at the [email or web address] for violation of parole. His most recent criminal charges include burglary in the third degree as well as grand larceny. He is set for release from state custody in roughly 3 weeks. MENTAL STATUS EXAM: The patient is a young white male with thinning hair, who is calm, but somewhat irritable. Speech is fluent with normal rate, tone and volume. Does not appear to be in any acute distress. Mood appears to be slightly dysphoric with an irritable affect. Thought process is linear, goal directed. Thought content is significant for his desire to receive Solu-Medrol , alpha-1 antitrypsin medication as well as pain reliever. He denies suicidal or homicidal ideations. He denies auditory or visual hallucinations. Insight and judgment are questionable due to concerns of feigned illness. Cognitively, he is awake and alert with what would appear to be an average intellect. DIAGNOSES: [place] I: Opioid use disorder, rule out malingering, rule out factitious disorder. [place] II: Antisocial personality traits. IMPRESSION/RECOMMENDATIONS: The patient is a 33-year-old white male with a history of polysubstance abuse, currently incarcerated at the [facility], who arrives after recent discharge from the ICU, again complaining of severe dyspnea, who is extubated this morning. The primary team is concerned about the patient perhaps exaggerating symptoms for either primary or secondary gain. At this time, a diagnosis of factitious disorder cannot be made as this is a diagnosis of exclusion and there is enough evidence to suggest a primary medical issue. Another possibility would be malingering to avoid group home service. This would also be a diagnosis of exclusion which we would not be comfortable making definitively at this point. What I can say is that the patient is opioid dependent and is typically stabilized on buprenorphine in the community, but has not been receiving this in the incarcerated setting. This certainly would give him some motivation to seek opioid pain relievers, although he denies that this is the case. At this time, further psychiatric evaluation and care is likely of limited utility. We will be signing off, but can certainly be reconsulted in the event of any significant changes in the patient's presentation. Thank you for the consult. [id number]/[facility] #: [id number] ANTONIA
[2019-09-27] MEDS: Heparin VIAL(*) 5000 UNITS/ML VIAL (FIVE THOUSAND) SUBCUT SCH ×2 (15:23→20:45)
--- NOTE | 2019-09-27 17:34 | CONSULT ---
Consult Consult: September 27, 2019 INPATIENT PAIN CONSULTATION Jared Franco is a 33 year old male. According to records, he has a history of familial angioedema and this requires him to be hospitalized and sometimes intubated for tongue swelling and difficulty breathing. He states he sees a ios architect at [facility] for this. According to the patient, he is on parole for an assault charge. 18 months ago, a friend of his who is a regular heroin user got him to try heroin. He both snorted it and injected it, and became a regular user of heroin. His employer noted his job performance was deteriorating and sent him to a drug counsellor. He was put on Suboxone, 03/18 once a day. He stayed on this for about a year. He violated parole by failing to appear before his business enterprise officer, and was sent to [facility]. Suboxone is not allowed at [facility] and was stopped. Last week, he developed symptoms of angioedema and was brought to [facility]. He was intubated and received IV steroids and IV morphine. He was discharged back to [facility] September 24. He felt that his symptoms were returning yesterday, he was given Benadryl by the [facility] staff, EMS was called and he received IV steroids and epi, benadryl and came to the ER and was intubated and admitted. He received ativan and Versed but no opioids. He was extubated this morning. The patient tells me his usual protocol is that he receives Morphine 4 mg IV Q4 PRN for his mouth and abdominal pain. I am asked to see him about his pain PAST MEDICAL HISTORY: Anxiety, Hep C Allergies Allergy/AdvReac Type Severity Reaction Status Date / Time monosodium glutamate Allergy Difficulty Verified 09/24/19 10:33 Breathing/Wheezing Current Medications Acetaminophen (Tylenol Tab*) 650 mg PO Q6H PRN PRN Reason: PAIN - MILD Last Admin: 09/27/19 10:53 Dose: 650 mg Famotidine (Pepcid Tab*) 20 mg PO BID [facility] Heparin Sodium (Porcine) (Heparin Vial(*)) 5,000 units SUBCUT Q8HR [facility] Last Admin: 09/27/19 15:23 Dose: 5,000 units Prednisone (Deltasone 20 Mg Tab) 40 mg PO DAILY [facility] Sofosbuvir (Epclusa Tab (Nf)) 1 tab PO DAILY [facility] SOCIAL HISTORY: Smoker. Denies drinking, smokes pot regularly. Lives with his and his 12 year old son in [place]. Vital Signs Temp Pulse Resp BP Pulse Ox 98.2 F 94 18 128/90 96 09/27/19 15:56 09/27/19 15:56 09/27/19 15:56 09/27/19 15:56 09/27/19 15:56 EXAM: GENERAL: in bed, legs are cuffed. Fidgety HEENT: EOMI LUNGS: Clear HEART: Reg rhythm ABDOMEN: Soft, diffuse tenderness NEUROLOGIC: alert, oriented. Moves all 4 extremities ASSESSMENT: 1. Angioedema, by report 2. History of IV heroin abuse PLAN: It is difficult for me to tell how real his pain is or if he is malingering or drug seeking. It certainly is true that if he was on Suboxone for a year and it was abruptly stopped, it might be difficult and he might be inclined to try to get an opioid. As a general rule, I try not to give IV opioids to recovering IV heroin addicts. I searched the [facility] and see no record of any Suboxone prescriptions but he may not have gotten it from a reporting pharmacy. Suboxone after release from [facility] may be a possible treatment for both his pain and addiction. Please call me back if I can be of assistance
[2019-09-27] MEDS ORDERED: C1 Esterase Inhib (Human) 500 UNIT INJ IV ONE (19:30)
[2019-09-27] MEDS ORDERED: Morphine INJ* 4 MG/ML 1 ML SYRINGE (NEW SYRINGE VERSION) IV ONE (20:25)
[2019-09-27] MEDS: diPHENhydraMINE PO* 50 MG PO SCH (20:45)
[2019-09-27] MEDS: Famotidine TAB* 20 MG PO SCH (20:45)
--- NOTE | 2019-09-27 21:02 | PN ---
Hospitalist Progress Note Date of Service: 09/27/19 Patient seen and evaluated at the bedside. Currently reports that his tongue swelling and lip- swelling is stable. He does c/o mild tongue swelling and abd swelling. Patient denies difficulty breath or wheezing. Patient is requesting pain medications for his abd pain and mouth pain. Will continue medications as prescribed and Benadryl. Patient was seen by DR. Sandra from allergy services who recommended Berinert 1750 units IV x 1- ordered, if symptoms resolved after this medications can discontinue prednisone, Pepcid and Benadryl
[2019-09-27] MEDS: PTO:Sofosbuvir/Velpatasvir 400/100(NF) TAB (Epclusa) PO SCH (22:05)
[2019-09-28] MEDS: diPHENhydraMINE PO* 50 MG PO SCH ×4 (02:18→20:09)
[2019-09-28] MEDS: Heparin VIAL(*) 5000 UNITS/ML VIAL (FIVE THOUSAND) SUBCUT SCH ×3 (06:25→22:38)
[2019-09-28] MEDS: Famotidine TAB* 20 MG PO SCH ×2 (09:40→20:09)
[2019-09-28] MEDS ORDERED: Ketorolac INJ* 30 MG/ML 1 ML VIAL IV PUSH PRN (10:09)
--- NOTE | 2019-09-28 10:14 | PN ---
Subjective Date of Service: 09/28/19 Interval History: C/o increased swelling to forehead, back of throat, and abdomen. Does not believe that he got much benefit from the Berinert he received yesterday, believes he may need a second dose. States pain 10/10 to these areas, throbbing. Believes this is because he had a Berinert injection yesterday. Is requesting morphine 4mg IV X1. Denies any difficulty breathing or swallowing. States he has been nauseous and threw up this morning although this was not witnessed per nursing. Denies any CP, diarrhea, numbness/tingling, swelling to any other areas other than what is listed above. Objective Active Medications: Diphenhydramine HCl (Benadryl Po*) 50 mg PO Q6H [facility] Last Admin: 09/28/19 06:25 Dose: 50 mg Famotidine (Pepcid Tab*) 20 mg PO BID [facility] Last Admin: 09/28/19 09:40 Dose: 20 mg Gabapentin (Neurontin Cap(*)) 300 mg PO TID [facility] Heparin Sodium (Porcine) (Heparin Vial(*)) 5,000 units SUBCUT Q8HR [facility] Last Admin: 09/28/19 06:25 Dose: Not Given Ketorolac Tromethamine (Toradol Inj*) 30 mg IV PUSH Q6H PRN PRN Reason: PAIN - MODERATE Prednisone (Deltasone 20 Mg Tab) 40 mg PO DAILY [facility] Last Admin: 09/28/19 09:40 Dose: 40 mg Sofosbuvir (Epclusa Tab (Nf)) 1 tab PO BEDTIME [facility] Last Admin: 09/27/19 22:05 Dose: 1 tab Vital Signs - 8 hr 09/28/19 09/28/19 09/28/19 02:18 02:27 02:28 Temperature Pulse Rate Respiratory 20 18 18 Rate Blood Pressure (mmHg) O2 Sat by Pulse Oximetry 09/28/19 09/28/19 09/28/19 02:52 06:25 07:30 Temperature 98.0 F 98.2 F Pulse Rate 74 66 Respiratory 16 16 20 Rate Blood Pressure 122/72 108/64 (mmHg) O2 Sat by Pulse 96 99 Oximetry 09/28/19 09/28/19 08:00 09:35 Temperature Pulse Rate Respiratory 18 18 Rate Blood Pressure (mmHg) O2 Sat by Pulse Oximetry Oxygen Devices in Use Now: None, Mechanical Ventilator Appearance: Guarded but NAD, able to sit up in bed and participate in conversation/exam Eyes: No Scleral Icterus, - - PERRL Ears/Nose/Mouth/Throat: - - No notable pharyngeal swelling , pt does not cooperate well with sticking tounge out but does not appear exceptionally swollen Neck: - - Normal appearance Respiratory: Symmetrical Chest Expansion and Respiratory Effort, Clear to Auscultation Cardiovascular: RRR Abdominal: - - BS throughout, mild rigidity and distention, tolerated palpation with support but appeared rather uncomfortable, no obvious organomegaly but as noted muscles seemed tight during exam Extremities: No Edema Neurological: Alert and Oriented x 3 Nutrition: Taking PO's Result Diagrams: 09/29/19 05:58 09/29/19 05:58 Assess/Plan/Problems-Billing Assessment: is a 33yo male who has a PMHx significant for angioedema with multiple intubations, Hep C currently on Epclusa, anxiety, and IV drug use. He is a resident of [facility]. He presented to the ED on 09/27 where he was intubated soon after arrival for angioedema and c/o SOB. Was extubated on the morning of 09/27 and eventually transferred to . - Patient Problems (1) Angioedema Current Visit: Yes Status: Acute Code(s): T78.3XXA - ANGIONEUROTIC EDEMA, INITIAL ENCOUNTER SNOMED Code(s): 24276665 Comment: Unclear if this is in fact HAE. Has had lab work done at another facility to rule in/out. migration specialist has been consulted. Per pt report did not receive much benefit from medications given thus far including antihistamines, Berinert. Continuation of mild exacerbation vs malingering? No SOB or difficulty breathing or swallowing. Does not appear to be in any acute distress. Is anxious, likely in relation to potentially returning to [place]. Physical findings inconsistent with pt complaints. - Per ; hold off on more Berinert unless having difficulty swallowing or showing signs of respiratory decline - will continue to monitor (2) Leukocytosis Current Visit: Yes Status: Acute Code(s): D72.829 - ELEVATED WHITE BLOOD CELL COUNT, UNSPECIFIED SNOMED Code(s): 935834257 Comment: Improved from yesterday. Likely in relation to steroids. Will continue to trend - Labs to be drawn 09/29 (3) Anemia Current Visit: Yes Status: Acute Code(s): D64.9 - ANEMIA, UNSPECIFIED SNOMED Code(s): 778266259 Comment: Values consistent with prior levels this year and from 2016. Chronic Hep C, on Epclusa, will continue to trend - Labs to be drawn 09/29 - Can follow up as outpatient when he is released from [place] (4) Hypokalemia Current Visit: Yes Status: Acute Code(s): E87.6 - HYPOKALEMIA SNOMED Code( s): 51741469 Comment: Resolved (5) History of intravenous drug abuse Current Visit: Yes Status: Acute Code(s): F19.11 - OTHER PSYCHOACTIVE SUBSTANCE ABUSE, IN REMISSION SNOMED Code(s): 65096029529010570 Comment: States he has been sober for 18 months however he was very adamant on 09/28 about "needing" morphine for pain control. Spoke to pt about not using this type of narcotic and the other options that are available to him. - continue acetaminophen with 2,000mg max daily dose - continue toradol - continue gabapentin - continue suboxone/naloxone strips - spoke to pt about this, it is a reasonable and safe option as he has an unclear hx of IV drug abuse and continues to request adequate pain control and denies receiving this from the other medications mentioned above. This morning he declined and stated that he had not used IV drugs in 18 months then later in the day requested that we revisit the suboxone treatment again. It was stated to patient that we will be able to use this medication while in the hospital however he will not be given a rx for when he leaves, he stated "that's okay, I only need it for a day or two " (6) DVT prophylaxis Current Visit: Yes Status: Acute Code(s): Z29.9 - ENCOUNTER FOR PROPHYLACTIC MEASURES, UNSPECIFIED SNOMED Code(s): 924594070 Comment: SCDs, heparin sq Status and Disposition: Status: improving Disposition: 4N Attending: Mary Kay Rivera - Along with other aspects of this patients care, the use of suboxone/naloxone strips was discussed in great detail with and she agrees with this plan
[2019-09-28] MEDS: Gabapentin CAP(*) 300 MG PO SCH ×2 (13:28→20:09)
[2019-09-28] MEDS: Buprenorp/Nalox 4-1 MG FILM SL FILM SCH ×2 (15:41→20:13)
[2019-09-28] MEDS ORDERED: Acetaminophen TAB* 325 MG PO PRN (18:04)
[2019-09-28] MEDS: PTO:Sofosbuvir/Velpatasvir 400/100(NF) TAB (Epclusa) PO SCH (20:08)
[2019-09-28] MEDS: Nicotine PATCH 7 MG/24 HR* PATCH TRANSDERM SCH (20:10)
[2019-09-29] MEDS: diPHENhydraMINE PO* 50 MG PO SCH ×4 (01:27→20:49)
[2019-09-29] MEDS: Heparin VIAL(*) 5000 UNITS/ML VIAL (FIVE THOUSAND) SUBCUT SCH ×3 (05:32→22:58)
[2019-09-29] MEDS: Nicotine Patch Removal NOTE FOLLOW UP SCH (05:34)
[2019-09-29 06:16] LABS: ABS Basophils 0.1 10^3/ul (0-0.2); ABS Eosinophils 0.1 10^3/ul (0-0.6); ABS Lymphocytes 3.7 10^3/ul (1.0-4.8); ABS Neutrophils 9.3 10^3/ul (1.5-7.7); Eosinophil % 0.8 %; Hematocrit 41 % (42-52); Hemoglobin 13.7 g/dL (14.0-18.0); Mean Corpuscular HGB Conc 33 g/dL (31-36); Mean Corpuscular Hemoglobin 27 pg (27-31); Mean Corpuscular Volume 82 fL (80-94); Mean Platelet Volume 8.4 fL (7.4-10.4); Nucleated Red Blood Cells % 0.2; Platelet Count 209 10^3/uL (150-450); Red Blood Count 5.03 10^6 /uL (4.18-5.48); Red Cell Distribution Width 14 % (10-15); White Blood Count 14.2 10^3/uL (3.5-10.8)
[2019-09-29 06:37] LABS: Calcium 8.5 mg/dL (8.6-10.3); EGFR African American 157.2 (>60); EGFR Non-African American 129.9 (>60); Potassium 4.1 mmol/L (3.5-5.0)
[2019-09-29] MEDS: Nicotine PATCH 7 MG/24 HR* PATCH TRANSDERM SCH (09:01)
[2019-09-29] MEDS: Calcium/Vitamin D TAB 250/125* TAB PO SCH (09:01)
[2019-09-29] MEDS: Famotidine TAB* 20 MG PO SCH ×2 (09:01→20:49)
[2019-09-29] MEDS: Buprenorp/Nalox 4-1 MG FILM SL FILM SCH ×3 (09:03→20:51)
[2019-09-29] MEDS: Gabapentin CAP(*) 300 MG PO SCH ×3 (09:03→20:50)
[2019-09-29] MEDS ORDERED: Sodium Phosphate ADULT ENEMA* 118 ml bottle PR ONE (10:18)
--- NOTE | 2019-09-29 16:59 | PN ---
Subjective Date of Service: 09/29/19 Interval History: Pt found sitting up in bed this morning. Does not appear to be in acute distress , he c/o tounge swelling this morning. No issues with swallowing or breathing. Denies any lightheadedness, headache, SOB, difficulty urinating, blood in urine , numbness/tingling. States that he vomited last at 0230 last night. No diarrhea. States that his pain is well controlled with the current medication regimen. Believes that his abdominal discomfort is worse and states that he has not had a BM since being in the hospital. Objective Active Medications: Acetaminophen (Tylenol Tab*) 650 mg PO Q8H PRN PRN Reason: PAIN - MILD Buprenorphine/Naloxone (Suboxone 4 Mg-1 Mg Sl Film) 1 each SL FILM TID [facility] Last Admin: 09/29/19 13:16 Dose: 1 each Calcium/Vitamin D (Oscal D Tab 250/125*) 1 tab PO DAILY [facility] Last Admin: 09/29/19 09:01 Dose: 1 tab Diphenhydramine HCl (Benadryl Po*) 50 mg PO Q6H [facility] Last Admin: 09/29/19 13:16 Dose: 50 mg Famotidine (Pepcid Tab*) 20 mg PO BID [facility] Last Admin: 09/29/19 09:01 Dose: 20 mg Gabapentin (Neurontin Cap(*)) 300 mg PO TID [facility] Last Admin: 09/29/19 13:16 Dose: 300 mg Heparin Sodium (Porcine) (Heparin Vial(*)) 5,000 units SUBCUT Q8HR [facility] Last Admin: 09/29/19 13:16 Dose: 5,000 units Ketorolac Tromethamine (Toradol Inj*) 30 mg IV PUSH Q6H PRN PRN Reason: PAIN - MODERATE Last Admin: 09/28/19 11:34 Dose: 30 mg Nicotine (Nicotine Patch 7 Mg/24 Hr*) 1 patch TRANSDERM DAILY [facility] Last Admin: 09/29/19 09:01 Dose: 1 patch Pharmacy Profile Note (Nicotine Patch Removal Note*) 1 note FOLLOW UP 0600 [facility] Last Admin: 09/29/19 05:34 Dose: 1 note Prednisone (Deltasone 20 Mg Tab) 40 mg PO DAILY [facility] Last Admin: 09/29/19 09:01 Dose: 40 mg Sofosbuvir (Epclusa Tab (Nf)) 1 tab PO BEDTIME [facility] Last Admin: 09/28/19 20:08 Dose: 1 tab Vital Signs - 8 hr 09/29/19 09/29/19 09/29/19 09:00 09:01 09:03 Temperature Pulse Rate Respiratory 17 17 17 Rate Blood Pressure (mmHg) O2 Sat by Pulse Oximetry 09/29/19 09/29/19 10:44 13:16 Temperature 97.1 F Pulse Rate 92 Respiratory 17 17 Rate Blood Pressure 120/90 (mmHg) O2 Sat by Pulse 96 Oximetry Oxygen Devices in Use Now: None, Mechanical Ventilator Appearance: NAD, anxious Eyes: No Scleral Icterus, - - PERRL Ears/Nose/Mouth/Throat: Clear Oropharnyx - no pharyngeal edema noted, tounge does not exhibit obvious edematous, speech sounds slightly garbled as if tounge was swollen but physical findings not consistent with this, Mucous Membranes Moist Neck: - - normal appearance Respiratory: Symmetrical Chest Expansion and Respiratory Effort, - - forced wheezing noted during auscultation Cardiovascular: RRR Abdominal: - - BS throughout, muscles firm during exam, no appreciable organomegaly Extremities: No Edema Neurological: Alert and Oriented x 3 Nutrition: Taking PO's Result Diagrams: 09/29/19 05:58 09/29/19 05:58 Additional Lab and Data: Abnormal Lab Results 09/29/19 09/29/19 05:58 05:58 WBC 14.2 H RBC 5.03 Hgb 13.7 L Hct 41 L MCV 82 MCH 27 MCHC 33 RDW 14 Plt Count 209 MPV 8.4 Neut % (Auto) 65.8 Lymph % (Auto) 26.0 [place] % (Auto) 6.8 Eos % (Auto) 0.8 Baso % (Auto) 0.6 Absolute Neuts (auto) 9.3 H Absolute Lymphs (auto) 3.7 Absolute Monos (auto) 1.0 H Absolute Eos (auto) 0.1 Absolute Basos (auto) 0.1 Absolute Nucleated RBC 0.0 Nucleated RBC % 0.2 Sodium 137 Potassium 4.1 Chloride 104 Carbon Dioxide 26 Anion Gap 7 BUN 14 Creatinine 0.70 Est GFR ( Amer) 157.2 Est GFR (Non-Af Amer) 129.9 BUN/Creatinine Ratio 20.0 Glucose 118 H Calcium 8.5 L Microbiology and Other Data: Microbiology 09/27/19 02:46 Urine Culture - Final Urine No Growth (<1,000 CFU/mL) Assess/Plan/Problems-Billing Assessment: is a 33yo male who has a PMHx significant for angioedema with multiple intubations, Hep C currently on Epclusa, anxiety, and IV drug use. He is a resident of [facility]. He presented to the ED on 09/27 where he was intubated soon after arrival for angioedema and c/o SOB. Was extubated on the morning of 09/27 and eventually transferred to . - Patient Problems (1) Angioedema Current Visit: Yes Status: Acute Code(s): T78.3XXA - ANGIONEUROTIC EDEMA, INITIAL ENCOUNTER SNOMED Code(s): 01576048 Comment: Unclear if this is in fact HAE. Has had lab work done at another facility to rule in/out. retention specialist has been consulted. Per pt report did not receive much benefit from medications given thus far including antihistamines, Berinert. Continuation of mild exacerbation vs malingering? No SOB or difficulty breathing or swallowing. Does not appear to be in any acute distress. Is anxious, likely in relation to potentially returning to [place]. Physical findings inconsistent with pt complaints. His quality of speech has also improved throughout the day and sounds normal. - Per ; hold off on more Berinert unless having difficulty swallowing or showing signs of respiratory decline - will continue to monitor (2) Leukocytosis Current Visit: Yes Status: Acute Code(s): D72.829 - ELEVATED WHITE BLOOD CELL COUNT, UNSPECIFIED SNOMED Code(s): 262943796 Comment: Continues to improve. Initial spike likely in relation to steroids. Will continue to trend - Labs to be drawn 09/30 (3) Anemia Current Visit: Yes Status: Acute Code(s): D64.9 - ANEMIA, UNSPECIFIED SNOMED Code(s): 671385468 Comment: Values consistent with prior levels this year and from 2016. Chronic Hep C, on Epclusa, will continue to trend - Labs to be drawn 09/30 - Can follow up as outpatient when he is released from [facility] (4) Hypokalemia Current Visit: Yes Status: Acute Code(s): E87.6 - HYPOKALEMIA SNOMED Code( s): 15613642 Comment: Resolved (5) History of intravenous drug abuse Current Visit: Yes Status: Acute Code(s): F19.11 - OTHER PSYCHOACTIVE SUBSTANCE ABUSE, IN REMISSION SNOMED Code(s): 72136764343371582 Comment: States he has been sober for 18 months however he was very adamant on 09/28 about "needing" morphine for pain control. Spoke to pt about not using this type of narcotic and the other options that are available to him. - continue acetaminophen with 2,000mg max daily dose - continue toradol - continue gabapentin - continue suboxone/naloxone strips - spoke to pt about this, it is a reasonable and safe option as he has an unclear hx of IV drug abuse and continues to request adequate pain control and denies receiving this from the other medications mentioned above. Yesterday he declined and stated that he had not used IV drugs in 18 months then later in the day requested that we revisit the suboxone treatment again. It was stated to patient that we will be able to use this medication while in the hospital however he will not be given a rx for when he leaves, he stated "that's okay, I only need it for a day or two" (6) Constipation Current Visit: Yes Status: Acute Code(s): K59.00 - CONSTIPATION, UNSPECIFIED SNOMED Code(s): 91476596 Comment: Has not had BM since arrival to the hospital. Could be contributing factor in relation to his abdominal discomfort. - fleet enema ordered - prune juice requested (7) DVT prophylaxis Current Visit: Yes Status: Acute Code(s): Z29.9 - ENCOUNTER FOR PROPHYLACTIC MEASURES, UNSPECIFIED SNOMED Code(s): 620702769 Comment: SCDs, heparin sq Status and Disposition: Status: guarded but stable Disposition: 4N Points of Discussion: Discussed plan of care with patient, current plan is watchful waiting, if his symptoms of swelling increase, medication or other intervention may be necessary to address the swelling but this will likely not include any narcotic pain medication. Will continue with current regimen and observe overnight for any respiratory distress or additional edema. Attending: Suzy Wolfe - This plan has been discussed with and she agrees with this plan
[2019-09-29] MEDS: PTO:Sofosbuvir/Velpatasvir 400/100(NF) TAB (Epclusa) PO SCH (20:50)
[2019-09-30] MEDS: diPHENhydraMINE PO* 50 MG PO SCH ×4 (01:38→18:16)
[2019-09-30] MEDS: Heparin VIAL(*) 5000 UNITS/ML VIAL (FIVE THOUSAND) SUBCUT SCH ×2 (05:57→12:57)
[2019-09-30] MEDS: Nicotine Patch Removal NOTE FOLLOW UP SCH (07:36)
[2019-09-30 07:48] LABS: ABS Basophils 0.1 10^3/ul (0-0.2); ABS Eosinophils 0.2 10^3/ul (0-0.6); ABS Lymphocytes 4.4 10^3/ul (1.0-4.8); ABS Monocytes 1.4 10^3/ul (0-0.8); ABS Neutrophils 9.1 10^3/ul (1.5-7.7); Eosinophil % 1.4 %; Hematocrit 42 % (42-52); Hemoglobin 14.1 g/dL (14.0-18.0); Lymphocyte % 28.8 %; Mean Corpuscular HGB Conc 33 g/dL (31-36); Mean Corpuscular Hemoglobin 27 pg (27-31); Mean Corpuscular Volume 82 fL (80-94); Mean Platelet Volume 8.3 fL (7.4-10.4); Nucleated Red Blood Cells % 0.2; Platelet Count 236 10^3/uL (150-450); Red Blood Count 5.17 10^6 /uL (4.18-5.48); Red Cell Distribution Width 14 % (10-15); White Blood Count 15.2 10^3/uL (3.5-10.8)
[2019-09-30 08:18] LABS: BUN/Creatinine Ratio 22.2 (8-20); EGFR African American 152.1 (>60); EGFR Non-African American 125.7 (>60); Potassium 4.3 mmol/L (3.5-5.0)
[2019-09-30] MEDS: Famotidine TAB* 20 MG PO SCH ×2 (10:58→19:22)
[2019-09-30] MEDS: Calcium/Vitamin D TAB 250/125* TAB PO SCH (10:58)
[2019-09-30] MEDS: Gabapentin CAP(*) 300 MG PO SCH ×3 (10:58→19:29)
[2019-09-30] MEDS: Nicotine PATCH 7 MG/24 HR* PATCH TRANSDERM SCH (10:58)
[2019-09-30] MEDS: Buprenorp/Nalox 4-1 MG FILM SL FILM SCH ×3 (10:59→19:23)
[2019-09-30] MEDS ORDERED: Albuterol 2.5 MG/3 ML NEB.SOL* (0.083%) INH ONE (14:59)
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
[2019-09-30] MEDS: PTO:Sofosbuvir/Velpatasvir 400/100(NF) TAB (Epclusa) PO SCH (19:22)
[2019-09-30 19:53] VITALS: BP 154/80
--- NOTE | 2019-10-01 01:43 | DS ---
AMENDED REPORT NOW INCLUDES DESIGNATED COSIGNER - ESIGNED BEFORE ADJUSTMENT DISCHARGE SUMMARY: DATE OF ADMISSION: 09/27/19 DATE OF DISCHARGE: 09/30/19 ATTENDING PHYSICIAN: Dr. Patrick * (dictated by Holli Lang NP). PRIMARY CARE PHYSICIAN: LEYLA Stone. CONSULTING PHYSICIANS: 1. Dr. Burns. 2. Dr. Miller. 3. Dr. Sandra, environmental health specialist. PRIMARY DIAGNOSIS: Angioedema. SECONDARY DIAGNOSES: 1. Leukocytosis. 2. Anemia. 3. History of intravenous drug use. 4. Constipation. HISTORY OF PRESENT ILLNESS AND HOSPITAL COURSE: Mr. Franco is a 33-year- old male who presented to the emergency department via EMS for shortness of breath and angioedema on 09/27/19. It was reported that the patient has a history of hereditary angioedema and that he has had 15 to 16 previous intubations in the past. He did have a prior admission to this emergency department on 09/22/19, for which he was intubated and sent to the ICU. He did receive a C1-esterase inhibitor along with steroids during that admission with the security system administrator. It is noted that the security system administrator did not agree with the diagnosis of hereditary angioedema at that time and did send out labs to the [facility]. For that admission, the patient was discharged on from the ICU. On 09/27/19, when the patient came into the emergency department, he presented with increasing shortness of breath. The ER physician thought the patient was in impending respiratory failure and subsequently intubated the patient after it was noted from a prior report that after a trial of epi and steroids, the patient's angioedema did not seem to be improve. After intubation, the patient was sent to the ICU and he was later extubated on the morning of 09/27/19. Noted per the security system administrator's report, after extubation that a.m., the patient immediately began to request pain medication. The security system administrator got in touch with his rheumatology office from [facility] as the patient stated he sees Dr. Whitney up there, and he was told that the patient missed his outpatient appointment and he will be then seen by Rheumatology as an inpatient. It was noted from his inpatient notes from [facility] that were faxed to the ICU here at [facility] that the patient had a negative workup for hereditary angioedema that included a normal C1 esterase, C1 inhibitor, C1q, C3 , and C4 making angioedema type 1 and 2 unlikely, and type 3 angioedema was noted to still be a possibility. Per the security system administrator's report, he noted that the patient may have angioedema, but it is worth considering that the patient may not truly carry the diagnosis of angioedema, that he may have a fictitious disorder in effort to obtain pain medication. The patient was noted be stable and was transferred to the medical unit [address] [place] [address]. The patient did continue to complain of tongue and abdominal swelling, was denying any difficulty breathing or wheezing. Continued to request pain medications for abdominal and mouth pain. As per recommendation from Dr. Sandra from allergy services, Berinert 1750 units IV x1 was ordered. During the following day, the patient continued to complain of forehead, tongue, and abdominal swelling. Stated that he was in intense pain. He was not only requesting pain medications but was requesting specific medications and dosages such as morphine 4 mg IV q.4 hours. The patient was spoken to about his current status and effects of his medications as well as recommendations to not continue him with any narcotics. The patient was, however, started on buprenorphine/naloxone 4 mg/1 mg film strips t.i.d. as this was thought to be a reasonable and safe medication for this patient. He was also given gabapentin, Toradol, and Tylenol. He would decline Tylenol and stated Toradol was not working. Since these medications have been started, although he still complains of abdominal pain, he states that his pain is under control and he does "not want more pain medication." The patient was made fully aware that these medications will not continue after he is discharged and he agreed that this plan was acceptable to him. However, even with the start of these medications, each morning upon interview, the patient does complain of either continued or increased swelling to either forehead, mouth, or abdomen. It was noted that he had not had a bowel movement since arrival and Fleet Enema was ordered, for which the patient had small hard bowel movement. Prune juice was continued to be given and the patient does admit that he had a large soft BM today. The patient seems to have new complaints of swelling to either the head, face, mouth, or abdomen every time he is told that it would be appropriate for him to go home. Dr. Hayes, who is the medical interpreter for [facility] was contacted this afternoon, spoke about the patient's care and presentation and physical findings in relation to complaints and that medically he does appear stable enough to go back to [facility] today. We also spoke about potential medications that may help him after discharge if he continues to have complaints of swelling. The patient otherwise has been maintaining adequate oxygen levels, does not appear to have any physical findings of oral or pharyngeal edema and will be sent back to [facility] today. STUDIES: Chest x-ray after intubation, impression: Showed the endotracheal tube tip terminates 4 cm below the tom. PERTINENT LAB DATA: WBCs 19.2 soon after arrival. Today, WBC is 15.2. H and H 13.6 and 41 after arrival; today, 14.1 and 42. INR 1.08. Last chemistry panel: Sodium 137, potassium 4.3, chloride 100, carbon dioxide 29, anion gap 8, BUN 16, creatinine 0.72, estimated GFR 125.7. BUN and creatinine ratio 22.2. Glucose 102, calcium 9.0. UA did show a specific gravity of 1.009 and was positive 3+ for blood and rbc's, otherwise unremarkable. Please note that on prior admission, the patient's hemoglobin A1c on 09/22/19 was 5.4. REVIEW OF SYSTEMS: Denies fevers, chills, visual changes, difficulty swallowing or chewing, chest pain or any peripheral swelling, shortness of breath, nausea, diarrhea, difficulty with urination. PHYSICAL EXAMINATION: Constitutional: The patient seen this morning sitting up in bed, appeared mildly anxious after speaking about discharge plan. Last vital signs: Temp 97.5, heart rate 96, respiratory rate 22, O2 sat 96% on room air, blood pressure 141/102. HEENT: PERRL. No scleral icterus noted. No oropharyngeal edema. Cardiovascular: Heart rate regular. S1, S2 present. No murmurs, rubs, or gallops. Extremities: No edema. Respiratory: Very faint expiratory rhonchi throughout right lung and left upper lobe. Left lower lobe clear. This was also faintly audible without stethoscope during the patient's exam; however, this was not audible during the patient's interview. GI: Abdomen flat with moderate amount of adipose tissue, striae noted. Bowel sounds x4. Does not tolerate palpation well. Muscles feel tense during palpation. The patient winces and moves around complaining of immense pain during palpation. Skin: Small scab with bruising noted to right hood, the patient states was present prior to arrival and he picked the scab off yesterday. Otherwise, appears to be dry and intact. Neuro: Alert and oriented x3. Psych: He appears mildly anxious. DISCHARGE PLAN: 1. Can resume regular diet. 2. No equipment needed for discharge. 3. Can resume usual activity level as tolerated. 4. Angioedema. At this point, it is unclear if this patient does in fact have hereditary angioedema, it sounds that a type 3 is still a potential. He does not appear acutely edematous and is stable and can go back to [facility] today. He reports little to no benefit from medications that he has had here including antihistamines and Berinert. However, he has requested an additional dose of Berinert and he also has been requesting antihistamines from Nursing. Continuation of mild exacerbation versus secondary gain? He can be treated appropriately while at [facility]. He should follow up either with Dr. Sandra or another specialist field engineer as an outpatient. He also could continue to follow up with Rheumatology as an outpatient. 5. Leukocytosis. Levels upon arrival were 19.2, reduced to 14.8, 14.2, and then 15.2 today. Likely in relation to steroid use as the patient was also on a steroid taper prior to coming in to the hospital for this current admission considering the drop from his initial value, for which he is still 4 points below that. He may follow up as outpatient with services from [facility] to monitor this if they deem necessary. 6. Anemia. H and H has been consistent with prior levels from this year as well as 2016. Today, his H and H is actually 14.1 and 42. He has chronic hep C , he is on Epclusa. He can follow up as an outpatient about this issue. 7. History of intravenous drug use. The patient will go back to [facility] where he will carry out the remainder of his sentence. He can follow up as an outpatient with addiction services if he wishes to. 8. Constipation. Seems to have resolved. He states that when he is in his usual setting, he does not seem to have an issue with constipation. 9. Return precautions. If the patient presents with acute angioedema, 911 should again be called and the patient should be transferred to appropriate facility. He can follow up with facility Medicine as necessary for any other nonemergent concerns. MEDICATIONS AT DISCHARGE: 1. Epclusa 1 tab p.o. daily. 2. Prednisone taper pack 30 mg tomorrow, then 20 mg x2 days, then 10 mg x2 days. CONDITION AT DISCHARGE: Guarded, but stable. DISPOSITION: Back to [facility]. Transported by guards. TIME SPENT: Approximately 90 minutes was spent on this discharge with almost half of that being face to face with the patient for interview, exam, and discussing discharge plans. The patient has been seen multiple times today. Discharge plan discussed with my attending physician Dr. Patrick and she agrees with this plan. HOLLI LANG NP [id number]/CPS #: [id number] ANTONIA
== END 2019-09-30 20:00 | DRG 811 ==
LOC: ED 01:02 → ICU 03:42 → EEVIPCON 03:42 → MED 15:55
PROVIDERS: ADMIT Internal Medicine; ATTEND Internal Medicine
PROC: 5A1935Z Respiratory Ventilation, Less than 24 Consecutive Hours (ICD-10-PCS; principal; 2019-09-27)
PROC: 0BH17EZ Insertion of Endotracheal Airway into Trachea, Via Natural or Artificial Opening (ICD-10-PCS; 2019-09-27)
DX: T78.3XXA Angioneurotic edema, initial encounter (principal); F11.90 Opioid use, unspecified, uncomplicated; F41.9 Anxiety disorder, unspecified; D72.829 Elevated white blood cell count, unspecified; D64.9 Anemia, unspecified; E87.6 Hypokalemia; F19.11 Other psychoactive substance abuse, in remission; K59.00 Constipation, unspecified; B18.2 Chronic viral hepatitis C; F17.200 Nicotine dependence, unspecified, uncomplicated; Z88.8 Allergy status to other drugs, medicaments and biological substances; Z79.899 Other long term (current) drug therapy
CPT/HCPCS: 36415; 36600; 71045; 80048; 80053; 81003; 81015; 82803; 83605; 84484; 85025; 85610; 87086; 94640; 96372; 99285; 99406; A9270-GY; J0171; J0330; J1644; J1885; J2060; J2250; J2270; J2405; J2704; J2920; J3480; J7512

== ENCOUNTER 2019-10-02 10:45 | Emergency (ER) | payer OTHER ==
[~2019-10-02 10:45] MED LIST: Tranexamic Acid 1,000 MG/10 ML 1,000 MG in NS 0.9% 50 ML* 50 ML IV ONE
[2019-10-02] MEDS ORDERED: KETAMINE HCL* 50 MG/ML 10 ML VIAL IV ONE (10:46)
[2019-10-02] MEDS ORDERED: NS 0.9% 1000 ML** 1,000 ML IV ONE ×3 (10:47→15:18)
--- NOTE | 2019-10-02 11:01 | ED ---
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 Patient states he's recently admitted in the ICU extubated, sent back to long term. Reports current symptoms started about 2.8 hours prior to arrival. On EMS arrival, patient had stridor was given 0.5 of epi twice IM, was given 2 racemic epi nebs, as well as albuterol, and solumedrol. Patient states that he is anxious, with trouble breathing. Per review of records, from his most recent stay with the ICU, there is a concern that patient does not have angioedema, and that his presentation is atypical. Patient was given several medications on the ICU, none of which appeared to have worked. Patient was extubated and discharged. - History of Current Complaint Chief Complaint: EDRespiratoryDistress Stated Complaint: SHORTNESS OF BREATH PER EMS Time Seen by Provider: 10/02/19 10:45 Hx Obtained From: Patient Pain Intensity: 5 Sputum Amount: None Alleviating Factor(s): Nothing Associated Signs and Symptoms: SOB - Allergy/Home Medications Allergies/Adverse Reactions: Allergies Allergy/AdvReac Type Severity Reaction Status Date / Time danazol Allergy Unknown Verified 10/02/19 10:52 Reaction Details monosodium glutamate Allergy Difficulty Verified 09/24/19 10:33 Breathing/Wheezing PMH/Surg Hx/FS Hx/Imm Hx Endocrine/Hematology History: Reports: Other Endocrine/Hematological Disorders - angioedema Cardiovascular History: Reports: Other Cardiovascular Problems/Disorders - HEREDITARY ANGIOEDEMA Respiratory History: Denies: Other Respiratory Problems/Disorders - Angioedema Sensory History: Reports: Hx Contacts or Glasses Denies: Hx Hearing Aid Opthamlomology History: Reports: Hx Contacts or Glasses Psychiatric History: Reports: Hx Anxiety Infectious Disease History: Unable to Obtain/Confirm Infectious Disease History: Reports: Hx Hepatitis Denies: Traveled Outside the [place] in Last 30 Days - Family History Known Family History: Positive: Other - hereditary angioedema - Social History Alcohol Use: None Hx Substance Use: No Substance Use Type: Reports: None Hx Tobacco Use: Yes Smoking Status (MU): Light Every Day Tobacco Smoker Type: Cigarettes Review of Systems Positive: Shortness Of Breath Positive: Edema All Other Systems Reviewed And Are Negative: Yes Physical Exam - Summary Physical Exam Summary: Constitutional: Mild distress Skin: Warm, Dry HENT: Normocephalic; Atraumatic Eyes: Conjunctiva normal Neck: Musculoskeletal ROM normal neck. (-) JVD, expiratory Stridor, (-) Nuchal rigidity. No uvular edema. No obvious tongue swelling Cardio: Rhythm regular, rate tachycarduc Heart sounds normal; Intact distal pulses; Radial pulses are 2+ and symmetric. (-) Murmur Pulmonary/Chest wall: tachypneic, (-) Wheezes, (-) Rales Abd: Soft, (-) tenderness, (-) Distension, (-) Guarding, (-) Rebound Musculoskeletal: (-) Edema Lymph: (-) Cervical adenopathy Neuro: Alert, Oriented x3 Psych: Deferred Triage Information Reviewed: Yes Vital Signs On Initial Exam: Initial Vitals Temp Pulse Resp BP Pulse Ox 101.0 F 130 35 160/126 97 10/02/19 10:46 10/02/19 10:46 10/02/19 10:46 10/02/19 10:46 10/02/19 10:46 Vital Signs Reviewed: Yes Procedures - Sedation Patient Received Moderate/Deep Sedation with Procedure: No Diagnostics - Vital Signs Vital Signs Temp Pulse Resp BP Pulse Ox 10/02/19 10:59 24 10/02/19 10:46 101.0 F 130 35 160/126 97 - Laboratory Lab Statement: Any lab studies that have been ordered have been reviewed, and results considered in the medical decision making process. Re-Evaluation - Re-Evaluation First Eval Re-Evaluation Time: 11:00 Comment: Patient is improved w Ketamine. No notable stridor. Second Eval Re-Evaluation Time: 11:11 Comment: Pt will be given 1g Ativan for comfort. Third Eval Re-Evaluation Time: 11:56 Comment: Pt is feeling better and asking for ice cream. Tolerating PO Fourth Eval Re-Evaluation Time: 14:33 Comment: Pt is requesting benadryl. Fifth Eval Re-Evaluation Time: 15:30 Comment: Pt is feeling better and is drinking his coffee comfortably Disposition - Course Course Of Treatment: 33 y/o male w hx possible hereditary angioedema presenting with difficulty in breathing. - Physical exam with a male in mild distress, increased breathing. No obvious swelling of the lip was or tongue. Per review of records, concerning the patient does not have urticaria angioedema. Despite this patient is of multiple intubations. We will attempt a low-dose ketamine for comfort and observe. ICU was consultated and came down to see patient and agree with plan. Patient did well with ketamine, and Ativan. No stridor and patient is resting. Patient is able to have conversation without difficulty in breathing however observed to have intermittent gasping-like breaths. Unclear if this functional. Patient was observed in the ER for 5 hours, given prednisone and Benadryl as he states this makes it feel better. Patient was noted to have eaten multiple ice-creams requesting coffee. It was not felt the patient had any signs of angioedema on his visit. Throughout his stay, patient requested multiple doctors, and medications. Charge nurse and I both spoke w patient. No respiratory distress on discharge. - Diagnoses Provider Diagnoses: Respiratory distress, Tachycardia, History of angioedema - Critical Care Time Critical Care Time: 30-74 min - Upon my evaluation, this patient had a high probability of imminent or life-threatening deterioration due to respiratory distress which required my direct attention, intervention, and personal management. I have personally provided 70 minutes of critical care time exclusive of time spent on separately billable procedures. Time includes review of laboratory data, radiology results, discussion with consultants, and monitoring for potential decompensation. Interventions were performed as documented above. Discharge ED - Sign-Out/Discharge Documenting (check all that apply): Patient Departure - Discharge Plan Condition: Stable Disposition: HOME Prescriptions: predniSONE 50 mg TAB [Deltasone 50 mg TAB] 50 mg PO DAILY 5 Days #5 tab Patient Education Materials: Angioedema (ED) Referrals: Giovana Contreras [Primary Care Provider] - Additional Instructions: Jared was seen in the ER for difficulty breathing. Please give him prednisone 50 mg daily for 5 days (he got a dose today 10/02). He can take 25 mg benadryl every 8 hours. Please return for trouble breathing or further signs of allergic reactions. It was a pleasure taking care of him today. - Billing Disposition and Condition Condition: STABLE Disposition: Home - Attestation Statements Document Initiated by Scribe: Yes Documenting Scribe: Braeden Elkins Provider For Whom Scribe is Documenting (Include Credential): Salud Tubbs Scribe Attestation: IBraeden, scribed for Salud Tubbs on 10/02/19 at 2154. Scribe Documentation Reviewed: Yes Provider Attestation: The documentation as recorded by the scribBraeden stanley accurately reflects the service I personally performed and the decisions made by Salud brand Status of Scribe Document: Ready
[2019-10-02] MEDS ORDERED: Lorazepam PYXIS KEY PRN (11:09)
[2019-10-02] MEDS ORDERED: LORazepam INJ* 2 MG/ML 1 ML VIAL IV PUSH ONE (11:09)
[2019-10-02] MEDS ORDERED: Tranexamic Acid 1,000 MG/10 ML SDV ONE (11:11)
[2019-10-02] MEDS ORDERED: LORazepam TAB(*) 1 MG PO ONE (12:47)
[2019-10-02] MEDS ORDERED: Ibuprofen TAB* 600 MG PO ONE (14:04)
[2019-10-02] MEDS ORDERED: diPHENhydraMINE PO* 25 MG PO ONE (14:33)
[2019-10-02 15:49] VITALS: BP 106/81
== END 2019-10-02 16:22 | disposition home or self-care (01) ==
LOC: ED 10:45
DX: R06.03 Acute respiratory distress (principal); R00.0 Tachycardia, unspecified; D84.1 Defects in the complement system; F17.210 Nicotine dependence, cigarettes, uncomplicated
CPT/HCPCS: 96365; 96375; 99283; A9270-GY; J2060; J7512